=== PATIENT | male | born 1955 | race Caucasian/White ===

== ENCOUNTER 2020-07-11 01:26 | Outpatient (CLI) | payer MEDICARE, SELFPAY ==
[2020-07-11 20:39] LABS: SARS-CoV-2 RNA PCR Negative
== END 2020-07-11 01:27 | disposition home or self-care (01) ==
LOC: ANHCOVIDDT 01:27
PROVIDERS: PCP Internal Medicine; Visit Provider Internal Medicine Cardiovascular Disease
DX: Z01.812 Encounter for preprocedural laboratory examination (principal); Z20.828 Contact with and (suspected) exposure to other viral communicable diseases
CPT/HCPCS: 87635; C9803; U0003

== ENCOUNTER 2020-07-13 01:09 | Day surgery (SDC) | payer MEDICARE, SELFPAY ==
[2020-07-12 09:49] VITALS: BMI 26.6
[2020-07-13] VITALS (15 sets, daily range): BP systolic 100–145; BP diastolic 71–121; PULSE 63–128; RESP 10–21; TEMP 36.2–36.5; O2SAT 95–100; BMI 26.5
--- NOTE | 2020-07-13 | ECG_ITS ---
Measurements Intervals [place] Rate: 77 P: CT: 0 QRS: 7 QRSD: 110 T: 39 QT: 347 QTc: 393 Interpretive Statements ATRIAL FLUTTER WITH VARIABLE BLOCK INCOMPLETE RIGHT BUNDLE BRANCH BLOCK ABNORMAL ECG Electronically Signed On 07-13-2020 11:33:56 PATIENT ACCOUNT ANALYST by Oswald Brown D.O.
--- NOTE | 2020-07-13 08:30 | ECG_ITS ---
Measurements Intervals [place] Rate: 64 P: 187 [place]: 151 QRS: 29 QRSD: 104 T: 5 QT: 411 QTc: 427 Interpretive Statements ECTOPIC ATRIAL RHYTHM VENTRICULAR PREMATURE COMPLEX INCOMPLETE RIGHT BUNDLE BRANCH BLOCK BORDERLINE ST-T WAVE ABNORMALITY- ANTERIOR LEADS ABNORMAL ECG Electronically Signed On 07-13-2020 11:24:46 GEOPHYSICAL PROSPECTING SURVEYOR by Oswald Brown D.O.
[2020-07-13 09:18] LABS: Hematocrit 48.9 % (42.0-52.0); Hemoglobin 16.9 g/dL (14.0-18.0); Mean Corpuscular HGB Conc 34.6 g/dl (32-36); Mean Corpuscular Hemoglobin 31.4 pg (26-34); Mean Corpuscular Volume 90.9 fl (80-100); Mean Platelet Volume 8.6 fl (7.4-10.4); Platelet Count Result 236 k/mm3 (150-375); Red Blood Count 5.38 M/mm3 (4.6-6.20); Red Cell Distribution Width 12.8 % (11.5-14.5); White Blood Count 10.4 K/mm3 (4.5-10.0)
[2020-07-13 09:29] LABS: INR 3.1; Prothrombin Time 32.1 Seconds (11.1-14.7)
[2020-07-13 09:45] LABS: Anion Gap 8 mmol/L (8-16); Blood Urea Nitrogen 16 mg/dL (9-20); Calcium 9.5 mg/dL (8.4-10.2); Carbon Dioxide 30 mmol/L (22-30); Chloride 102 mmol/L (98-107); Estimated CRCL calculation 75 ml/min; Estimated Glomerular Filt Rate > 60; Glucose 102 mg/dL (75-110); Magnesium 2.1 mg/dL (1.6-2.3); Potassium 4.2 mmol/L (3.4-5.0); Sodium 140 mmol/L (137-145)
--- NOTE | 2020-07-13 10:16 | WPDMODSED ---
Moderate Sedation Note-Pt Data Patient Data Diagnosis: Atrial flutter with variable AV block Present Complaint: none Procedure to be performed/Plan: transesophageal echocardiographic guided elective electrical cardioversion Allergies Allergy/AdvReac Type Severity Reaction Status Date / Time NKDA Allergy Unknown Unknown Uncoded 07/12/20 09:47 Home Medications Medication Instructions Recorded Confirmed Type aspirin 81 mg PO DAILY 07/12/20 07/12/20 History metoprolol succinate 25 mg PO DAILY 07/12/20 07/12/20 History multivitamin [Daily Multivitamin] 1 tablet PO DAILY 07/12/20 07/12/20 History pantoprazole 40 mg PO QAM 07/12/20 07/12/20 History pravastatin 40 mg PO BID 07/12/20 07/12/20 History warfarin 5 mg PO DAILY 07/12/20 07/12/20 History Current Medications: Active Medications Sodium Chloride (Normal Saline Iv) 1,000 mls @ 30 mls/hr IV CONT .Q24H CINDY Sedation/Anesthesia: No previous sedation/anesthesia problems (including family history). [facility] Past Medical History Medical History Atrial flutter Mitral stenosis Pulmonary hypertension Surgical History Surgical History Status post mitral valve repair Family History Family History Other Hypertension Social History Social History Smoking status: Former smoker Alcohol intake: never Substance use: former Substance use type: does not use Living arrangements: with family Gender identity (if verbalized by the patient): Male Sexual Orientation (if Verbalized by the Patient): Straight or Heterosexual Spiritual care concerns: No Mod Sed Physical Exam Physical Exam Pre Procedural Exam: Normal: Appearance, Eyes, Ears, Nose, Neck ( supple, normal range of motion), Throat ( posterior hypopharynx clear, nonerythematous), Airway ( normal anatomy, no obstruction), Lungs ( clear to auscultation bilaterally), Heart Size, Heart Rate ( regularly irregular), Heart Rhythm, Neuro Exam, Abdomen, Liver, Kidneys, Extremities and Skin Hours since solid foods: 12 Hours since liquid intake: 12 Internal Medicine - PN: Obj Da Vital Signs Vital Signs: Vital Signs - 24 hr 07/13/20 09:08 Temperature 36.5 C Pulse Rate 128 H Respiratory Rate 11 L Blood Pressure 145/121 H Pulse Oximetry 100 Meds/Results Medications: Active Medications Generic Name Dose Route Start Last Admin Trade Name Carlq PRN Reason Stop Dose Admin Sodium Chloride 1,000 mls @ 30 mls/hr 07/13/20 06:00 Normal Saline Iv IV CONT .Q24H CINDY Labs CBC & Chem 7: 07/13/20 09:02 07/13/20 09:02 Labs: Laboratory Results - last 24 hr 07/13/20 07/13/20 07/13/20 09:02 09:02 09:12 WBC 10.4 H RBC 5.38 Hgb 16.9 Hct 48.9 MCV 90.9 MCH 31.4 MCHC 34.6 RDW 12.8 Plt Count 236 MPV 8.6 PT 32.1 H INR 3.1 Sodium 140 Potassium 4.2 Chloride 102 Carbon Dioxide 30 Anion Gap 8 BUN 16 Creatinine 0.90 Estim Creat Clear Calc 75 Estimated GFR > 60 Glucose 102 Calcium 9.5 Magnesium 2.1 ASA Classification/Sedation ASA Classification/Sedation ASA Class: III Emergent: No Risks: Risks, benefits and alternatives explained and patient/family accepted plan for sedation. Patient re-evaluated immediately prior to sedation.
--- NOTE | 2020-07-13 10:20 | WPDHPUPDATE1 ---
History and Physical Update Update Date/Time: 07/13/20 10:20 History and Physical has been reviewed, including an updated exam of the patient. There are NO changes in the patient's condition. Risks, benefits, and alternatives have been discussed and questions answered. Patient agrees to proceed with procedure.
--- NOTE | 2020-07-13 11:16 | WPDTECDV ---
RUTH with Cardioversion Date of procedure: 07/13/20 Procedure Type: Transesophageal echocardiogram guided elective electrical cardioversion Diagnosis: history of mitral valve repair, atrial flutter with variable AV block Indications: history of mitral valve repair, atrial flutter with variable AV block Description of Procedure: Brief history present illness: Patient is a pleasant 64-year-old male with a history of complex mitral valve repair with quadrangular resection of the posterior leaflet status post mitral valve annuloplasty ring 2010 And postoperative atrial fibrillation /flutter status post cardioversion who now presented in the office complaints of palpitations found to be in atrial flutter with variable AV block with a surface echocardiogram which revealed suggestion of [id number] mitral stenosis mean gradient of 11 mm Hg calculated valve a 2.5 centimeter squared referred for transesophageal echocardiogram-guided elective electrical cardioversion in attempt to restore sinus rhythm and assessment of mitral repair with stenosis. Procedure in detail: After verbal and written informed consent was obtained the patient risks, benefits, and alternatives explained in detail the patient agreed to proceed with the plan of care as outlined above. Patient was evaluated at bedside in the [facility] procedure room. On examination, neck was supple with normal range of motion, no restrictions to opening of the oral cavity, jaw angle and posterior hypopharynx was clear. Lungs were clear to auscultation. Patient was placed in appropriate 30 to 45 degree angle in a supine, slight left lateral decubitus position. Patient was monitored throughout the study with telemetry, oxygen saturation, end-tidal CO2 monitoring, blood pressure, heart rate, and respirations. Anterior and posterior defibrillator pads placed in the appropriate positions. The posterior hypopharynx was then locally anesthetized using repeated administration of Hurricaine spray as well as gargled viscous lidocaine. After local anesthetic of the posterior hypopharynx was achieved and the oral bite block placed, moderate sedation was administered. Through the oral bite block, the transesophageal echocardiogram probe was advanced into the posterior hypopharynx and into the esophagus easily and without complication. Multiple, multiplanar echocardiographic images were obtained in multiple standard re-projections. Pulsed wave, continuous-wave, and color-flow Doppler were utilized in conjunction with this study. At the conclusion of the study, the transesophageal echocardiogram probe was removed easily and without complication. Patient tolerated the procedure well without difficulty. Patient was in atrial fibrillation throughout the study. Sedation: Moderate Sedation/Anesthesia administration: Patient denied previous intolerance or complications with anesthesia/sedation. Please see sedation note for documentation of the pre-procedure physical examination. As noted above, after adequate local anesthesia of the posterior hypopharynx was achieved, a total of mg intravenous Versed and a total of mcg intravenous Fentanyl in multiple divided doses was utilized for moderate sedation. Sedation start time was and end time was for a total of minutes [id number] intra-procedure time. Sedation was administered by a qualified observer RN under my supervision with intra-procedure [id number] observation and management throughout the entirety of the procedure. There were no other issues or complications and patient tolerated the procedure well and sedation protocol well and I was present for the entirety. Findings: Findings: Left ventricle not well visualized in all views due to reverberation artifact from mitral annuloplasty ring, however, LV size appears within normal limits, LV systolic function lower limits normal 50-55%. Right ventricular size and systolic function within normal limits. Upper limits normal
== END 2020-07-13 12:28 | disposition home or self-care (01) ==
PROVIDERS: PCP Internal Medicine; Visit Provider Internal Medicine Cardiovascular Disease
PROC: 5A2204Z Restoration of Cardiac Rhythm, Single (ICD-10-PCS; principal; 2020-07-13 10:00)
PROC: (CPT 93312; 2020-07-13 10:00)
DX: I48.92 Unspecified atrial flutter (principal); I45.19 Other right bundle-branch block; I27.20 Pulmonary hypertension, unspecified; I34.2 Nonrheumatic mitral (valve) stenosis; Z79.01 Long term (current) use of anticoagulants; Z87.891 Personal history of nicotine dependence; Z79.51 Long term (current) use of inhaled steroids; Z79.899 Other long term (current) drug therapy
CPT/HCPCS: 36415; 80048; 83735; 85027; 85610; 92960; 93005; 93312; 93320; 93325; J2250; J3010; J7040

== ENCOUNTER 2022-09-07 10:26 | Outpatient (NON) | payer MEDICARE, SELFPAY ==
[2022-09-07 12:46] LABS: Appearance Synovial Fluid Cloudy (Clear); Color Synovial Fluid Red (Colorless); Source Synovial Fluid Synovial fluid
[2022-09-07 12:47] LABS: Lymphocytes Synovial Fluid 13 %; Monocytes Synovial Fluid 37 %; Neutrophils Synovial Fluid 50 % (0-25); Nucleated Cell Synovial Fluid 1782 /uL (0-200)
[2022-09-07 12:52] LABS: Crystals Synovial Fluid None Seen (None Seen)
== END 2022-09-07 10:27 | disposition home or self-care (01) ==
PROVIDERS: PCP Internal Medicine; Visit Provider Physician Assistant Surgical
DX: M25.462 Effusion, left knee (principal)
CPT/HCPCS: 89051; 89060

== ENCOUNTER 2023-10-01 10:14 | Outpatient (CLI) | payer MEDICARE, SELFPAY ==
--- NOTE | ~2023-10-01 | XR_ITS ---
Left Knee Technique: AP, lateral, and sunrise views were obtained. Clinical History: Pain Findings: No fracture or dislocation is seen. Osseous alignment is anatomic. Joint spaces are preserv ed without degenerative or erosive change. There is chondrocalcinosis of the menisci. Moderate joint effusion is seen. Impression: Moderate joint effusion. Chondrocalcinosis of the menisci. Reviewed, dictated and finalized at location . PRODUCTION ARTIST Impression: Moderate joint effusion. Chondrocalcinosis of the menisci.
[2023-10-01 12:31] LABS: Color Synovial Fluid Other (Colorless); Source Synovial Fluid Synovial fluid
[2023-10-01 12:32] LABS: Appearance Synovial Fluid Clear (Clear); Nucleated Cell Synovial Fluid 340 /uL (0-200); RBC Synovial Fluid 1545 /uL (0-0)
[2023-10-01 12:40] LABS: Crystals Synovial Fluid Rare Cppd (None Seen); Lymphocytes Synovial Fluid 32 %; Monocytes Synovial Fluid 9 %; Neutrophils Synovial Fluid 59 % (0-25)
== END 2023-10-01 10:15 | disposition home or self-care (01) ==
PROVIDERS: PCP Internal Medicine; Visit Provider Physician Assistant Surgical
DX: M17.12 Unilateral primary osteoarthritis, left knee (principal); M25.462 Effusion, left knee
CPT/HCPCS: 73562; 87070; 87205; 89051; 89060

== ENCOUNTER 2023-11-07 08:18 | Outpatient (CLI) | payer MEDICARE, SELFPAY ==
--- NOTE | ~2023-11-07 | MR_ITS ---
EXAMINATION: MR knee LT wo con DATE: 11/07/2023 09:16 INDICATION: Left knee pain TECHNIQUE: Magnetic resonance imaging (MRI) of the left knee was performed without intravenous contra st. Sequences included coronal PD-weighted FSE, coronal PD-weighted FS FSE, sagittal T2-weighted FSE , sagittal PD-weighted FS FSE and axial PD weighted fat saturated FSE. COMPARISON: Radiographs dated 10/01/2023 FINDINGS: Medial compartment: Medial extrusion of the small or meniscal body likely reflecting changes of prior partial meniscectom y. There is a complex tear with linear fluid signal extending to contact both the superior and inferi or articular surfaces at the junction of the body and posterior horn of the medial meniscus. There is additional increased signal of less than fluid intensity which extends a small distance into the imm ediately adjacent medial side of the posterior horn and through the remaining meniscal tissue at the body of the meniscus which is also suspicious for tear although could also result from the chondrocal cinosis which is evident on the prior radiographs. There is shallow chondral ulceration with mild par tial-thickness cartilage loss and chondral surface regularity along the medial tibial plateau as well as the anterior weightbearing medial femoral condyle, both with deeper fissuring laterally but witho ut degenerative subchondral changes. Lateral compartment: There is increased signal of less than fluid intensity wall of the inner two thirds of the anterior h orn and along the free edge and inferior articular surface of the body of the lateral meniscus suspic ious for complex tear although there is chondrocalcinosis along the lateral meniscus on the plain rad iographs which could also account for the increased signal in the absence of tear. A portion of incre ased signal at the anterior horn however appears relatively linear and well-defined extending to the inferior articular surface and is most suspicious for tear. As in the medial compartment there is dif fuse shallow chondral ulceration with chondral surface regularity along the lateral tibial plateau an d anterior to central weightbearing lateral femoral condyle. There is some deeper chondral fissuring at the central to posterior aspect of the lateral tibial plateau with a couple tiny foci of subarticu lar marrow-like signal change. This underlies a small focus of low signal intensity suggesting a tiny loose body situated between the lateral tibial plateau and the free edge of the posterior horn of th e lateral meniscus. There is a larger osteochondral body with central marrow fat signal intensity jayda ng the posterior inferior margin of the posterior horn. There is additional deep chondral fissuring w ith subarticular edema-like signal change along the posterior most articular surface of the lateral f emoral condyle. Patellofemoral compartment: Deep chondral fissuring with underlying mild subarticular edema-like signal change extending a band a cross the lateral patellar facet and juxtaposed cephalad aspect of the lateral trochlea. Ligaments and tendons: Anterior and posterior cruciate ligaments are normal. The medial collateral ligament and fibular mae ateral ligament complex are normal. Mild distal quadriceps tendinopathy with small heterotopic ossicl e at its anterior tibial insertion which suggests sequela of chronic Memo-Schlatter's disease. Quad riceps tendon is normal. The visualized medial and lateral hamstring tendons as well as the iliotibia l band are normal. Fluid: Small to moderate-sized knee joint effusion with mild synovitis at the suprapatellar pouch and in the posterior recess of the knee. Additional loose osteochondral bodies in the posterior recess of the n ative largest posterior to the posterior cruciate ligament. There is a multilobulated ganglion cyst e xtending along the posterior rim of the lateral tibial plateau deep to the distal
== END 2023-11-07 08:19 | disposition home or self-care (01) ==
PROVIDERS: PCP Internal Medicine; Visit Provider Physician Assistant Surgical
DX: S83.242D Other tear of medial meniscus, current injury, left knee, subsequent encounter (principal); X58.XXXD Exposure to other specified factors, subsequent encounter; M17.12 Unilateral primary osteoarthritis, left knee; M25.462 Effusion, left knee
CPT/HCPCS: 73721

== ENCOUNTER 2023-12-09 13:06 | Outpatient (CLI) | payer MEDICARE, SELFPAY ==
--- NOTE | 2023-12-09 13:24 | ECG_ITS ---
Measurements Intervals [place] Rate: 53 P: -73 [place]: 128 QRS: 12 QRSD: 116 T: 25 QT: 434 QTc: 418 Interpretive Statements ECTOPIC ATRIAL RHYTHM WITH OCCASIONAL SUPRAVENTRICULAR PREMATURE COMPLEXES RIGHT BUNDLE BRANCH BLOCK [90+ ms QRS DURATION, TERMINAL R IN V1/V2, 40+ ms S IN I/aVL/V4/V5/V6] ABNORMAL ECG SEE SCANNED COPY FOR SIGNATURE MTDD
[2023-12-09 13:40] LABS: INR 1.2; Partial Thromboplastin Time 37.6 Seconds (22.3-36.8); Prothrombin Time 15.6 Seconds (11.1-14.7)
== END 2023-12-09 13:07 | disposition home or self-care (01) ==
LOC: ANHSURGERY 13:09
PROVIDERS: Anesthesiology; PCP Internal Medicine; Visit Provider Orthopaedic Surgery
DX: E78.00 Pure hypercholesterolemia, unspecified (principal); Z79.01 Long term (current) use of anticoagulants; Z01.818 Encounter for other preprocedural examination; I45.10 Unspecified right bundle-branch block
CPT/HCPCS: 36415; 85610; 85730; 93005

== ENCOUNTER 2023-12-12 00:18 | Day surgery (SDC) | payer MEDICARE, SELFPAY ==
--- NOTE | 2023-12-09 08:37 | PC.NURSE ---
Report to the Outpatient Waiting Room, entrance under the green pavilion located off [facility], at time __1130 on date _12/12/23 . Planned Procedure Time: __1:30 PM . Time changes happen often and if your time is changed the preop area will call you the afternoon before. - You and your visitor will be asked to self-screen and do not enter if you have any COVID symptoms. - A mask is optional within the hospital at this time. Patients may have clear liquids (water, carbonated beverages, clear teas, apple juice) until 3 hours prior to surgery( 10:30 AM) with a maximum of 20 ounces. - No food from midnight until time of surgery - Infants may have breast milk until 4 hours before surgery, infant formula 6 hours prior to surgery. - Children will be allowed to drink immediately following surgery. If applicable, please bring a bottle or sippy cup to assist with drinking. Juice, water, soda, and popsicles are readily available. For infants on formula, please bring formula the day of surgery. Pacifiers are allowed. Take the following medications with a SIP of water the morning of surgery: ____METOPROLOL DO NOT STOP ANY OF YOUR OTHER PRESCRIPTION MEDICATIONS PRIOR TO SURGERY ?EXCEPT THE FOLLOWING Medications to discontinue per physician ___PT STATES LAST DOSE ASPIRIN AND WARFARIN 12/06/[address] REGALADO . LAST DOSE MULTIVITAMIN 12/09/23 Please no make-up, nail panamanian, hairspray, perfume, deodorant, or body powder the day of surgery. No jewelry (including any body piercings) or valuables the day of surgery, leave them at home. Please take a shower or bath the night before, or the morning of, surgery with an antibacterial soap. Wear comfortable, loose fitting clothing. Children are encouraged to wear pajamas. - Jewelry must be removed prior to entering the operating room. Rings and piercings that are not removed may be cut off. - The hospital will not accept responsibility for valuables. - Please leave all valuables, including medications, at home the day of surgery. If you are going home after surgery, a licensed [facility] driver must drive you home. - NO public transportation without another adult if you receive anesthesia. - We recommend that an adult stay with you for 24 hours following discharge. - We also recommend that you do not drive, make important decision, drink alcoholic beverages, or take any drugs that were not prescribed by your health care provider for at least 24 hours after your discharge time Follow any additional instructions given to you from your surgeon. If you or anyone in your household have experienced Covid symptoms in the past week, please notify your surgeon or the nurse liaison at the phone number below for possible testing. Telephone instructions given to _PATIENT and asked if any additional questions and then verbalized understanding. Patient advised to call surgeon office or pre surgery nurse liaison [phone] if any additional questions.
[2023-12-09 08:49] VITALS: BMI 23.4
[2023-12-12] VITALS (7 sets, daily range): BP systolic 102–150; BP diastolic 53–68; PULSE 46–50; RESP 13–16; TEMP 36.2–36.6; O2SAT 100
[2023-12-12] MEDS: LACTATED RINGERS 1,000 ML 30 ML IV CONT ×2 (12:00→14:36)
[2023-12-12] MEDS: ACETAMINOPHEN 500 MG TABLET 1000 MG PO (12:25)
[2023-12-12 12:35] LABS: Prothrombin Time 13.8 Seconds (11.1-14.7)
[2023-12-12 12:36] LABS: Partial Thromboplastin Time 34.6 Seconds (22.3-36.8)
[2023-12-12] MEDS: KETOROLAC 15 MG/ML VIAL (*BKC) IV PUSH (13:09)
--- NOTE | 2023-12-12 13:14 | WPDHPUPDATE1 ---
History and Physical Update Update Date/Time: 12/12/23 13:14 History and Physical has been reviewed, including an updated exam of the patient. There are NO changes in the patient's condition. Risks, benefits, and alternatives have been discussed and questions answered. Patient agrees to proceed with procedure.
--- NOTE | 2023-12-12 13:28 | WPDANESEPPF ---
Anes - Initial Pre Proc Eval Procedure: Operation Date: 12/12/23 13:30 Proposed Procedures p Left Knee Arthroscopic Partial Medial and Lateral Meniscectomy with Loose Body Removal - Renzo Gutiérrez MD Date/Time: 12/12/23 13:28 Surgeon: Renzo Gutiérrez MD Pre Op Diagnosis: Lt Knee Medial and Lateral Meniscus Tears Patient Data Age: 67 Gender: M Height: 1.8 m Weight: 78 kg Last Vital Signs Temp 97.1 F L 12/12/23 12:44 Pulse 49 L 12/12/23 12:44 Resp 16 12/12/23 12:44 BP 119/68 12/12/23 12:44 Pulse Ox 100 12/12/23 12:44 O2 Del Method Room Air 12/12/23 12:44 Allergies Allergy/AdvReac Type Severity Reaction Status Date / Time No Known Allergies Allergy Verified 12/12/23 11:53 Home Medications Medication Instructions Recorded Confirmed Type aspirin 81 mg tablet 81 mg PO DAILY 07/12/20 12/12/23 History multivitamin 1 tablet PO DAILY 07/12/20 12/12/23 History pravastatin 40 mg tablet 40 mg PO BID 07/12/20 12/12/23 History warfarin 5 mg tablet 5 mg PO DAILY 07/12/20 12/12/23 History metoprolol succinate 25 mg 50 mg PO DAILY #60 tabs 07/13/20 12/12/23 Rx tablet,extended release 24 hr pantoprazole 20 mg tablet,delayed 20 mg PO DAILY 12/09/23 12/12/23 History release hydrocodone 5 mg-acetaminophen 325 1 - 2 tablet PO Q4-6H PRN pain #15 12/12/23 Rx mg tablet tabs Laboratory Tests 12/12/23 12:19 PT 13.8 Seconds (11.1-14.7) INR 1.0 APTT 34.6 Seconds (22.3-36.8) Patient hx anesthesia problems: none Family hx anesthesia problems: none Results Review: All pre-operative results and documents have been reviewed as part of the pre-operative evaluation. [facility] Past Medical History Medical History A-fib Atrial flutter FH: mitral valve repair History of cardioversion (~07/13/20) Mitral stenosis Pulmonary hypertension Surgical History Surgical History H/O lateral meniscus repair of left knee (~1971) Hx of arthroscopic knee surgery (~1979) Lt knee Status post mitral valve repair Family History Family History Other Hypertension Social History Social History Smoking packs per day: 1 Smoking cigarettes per day: 20.0 Years smoked: 10 Smoking pack-years: 10.00 Smoking status: Former smoker Tobacco type: cigarettes Smoking end date: 09/02/79 Alcohol intake: never Substance use: former Substance use type: does not use Do You Feel Safe in your Home?: Yes Lack of Transportation: No Lack of Food: Never True Current Housing: I Have Housing Concerned About Future Housing: No Difficulty Paying Gas/Electric Bills: No Difficulty Paying for Meds: No Currently Unemployed: No Education: Associate Degree Difficulty w/ Childcare or Family Care: No Living arrangements: with family Gender identity (if verbalized by the patient): Male Sexual Orientation (if Verbalized by the Patient): Straight or Heterosexual Spiritual care concerns: No Anes - Eval Final PreProcedure Day of Procedure 12/12/23 13:28 Patient weight: normal Heart: regular rate and rhythm Lungs: clear to auscultation Airway: Mallampati scale Neurological: alert and oriented Last oral intake: >/= 8 hours ASA classification: III Emergent: no Anesthetic plan: proceed Anesthesia type and monitoring: general and standard monitoring Results Review: All pre-operative results and documents have been reviewed as part of the pre-operative evaluation. Pt w many questions about GA vs spinal. Lengthy discussion w pt and at bedside. They had questions about perioperative brain health. I did my best to explain the situation and background. After much discussion, we have made a shared decision to proceed w GA with short a
[2023-12-12] MEDS: ceFAZolin 2 GM/D5W 50 ML 2 GM/50 ML BAG IVPB (13:30)
[2023-12-12] MEDS: BUPIVACAINE/EPINEPHRINE 0.5% 50 ML VIAL 30 ML INFILTRATE (13:47)
--- NOTE | 2023-12-12 15:18 | W.PM.PROC2 ---
Procedure Note - Detailed Date of Procedure 12/12/23 Pre-op Diagnosis Lt Knee Medial and Lateral Meniscus Tears and multiple small loose bodies. Post-op Diagnosis Same Procedure Performed Arthroscopic partial medial and lateral meniscectomies, left knee. 2. Multiple loose body removal, 1 cm x 2 and several other smaller fragments. Surgeon Renzo Gutiérrez MD Anesthesia General Findings Significant pseudogout chondrocalcinosis in the menisci. Moderate diffuse synovitis. Complex tearing on the medial and lateral menisci. Some fraying of the ACL. Posterior knee had some thickening of the capsule and ligamentous tissue without loose body. The lateral loose body attached under the meniscus was identified and removed. It was approximately 1 cm in diameter. A 2nd loose body was found floating in the superior medial gutter. Several other small loose bodies were removed as well. Medial femur chondromalacia grade 2, medial tibia grade 2. Lateral femur chondromalacia grade 2, lateral tibia grade 2. Patellar grade 2, trochlea grade 1. Description of Procedure The patient was identified and the surgical site confirmed and signed in the preoperative holding area. Antibiotics were started per protocol, and the patient was brought to the operative room and transferred to the OR table. A general anesthetic was administered. Supine position with the operative lower extremity position in the leg crisostomo after placement of a well padded tourniquet. The leg support was lowered and the contralateral limb was supported with a soft bolster. The knee was prepped and draped in the usual sterile fashion. A time-out was performed. The portal sites were marked and infiltrated with 0.5% Marcaine 20 mL. The limb was exsanguinated and the tourniquet inflated to 300 mL Hg. Standard inferolateral and inferomedial portals were established. Inflow was obtained with the saline pump. The camera was introduced. Diagnostic inspection of the joint was accomplished. The menisci were debrided with the arthroscopic shaver and punches until stable. The radiofrequency probe was also used for further d?bridement. The loose bodies were similarly retrieved with a grasper through the anteromedial and anterolateral portal as necessary. The posterior joint was inspected by inserting the arthroscope just lateral to the ACL. There was thickening of the posterior tissue consistent with possible fragment of the PCL. There was a moderate synovitis diffusely. The arthroscopic instruments were removed. The tourniquet released and wounds closed with subcutaneous 4-0 Monocryl absorbable suture. Steri strips and a sterile dressing were applied. A light elastic wrap was placed. The patient was extubated and brought to the recovery room in stable condition. Estimated Blood Loss 5 Drains No Complications No immediate complications Condition Stable Disposition PACU [facility] Surgery - Charge Forward: Surgery Carlosing
[2023-12-12] MEDS: oxyCODONE HCL (*CRX) 5 MG TAB IR PO (15:25)
== END 2023-12-12 16:16 | disposition home or self-care (01) ==
PROVIDERS: Anesthesiology; PCP Internal Medicine; Visit Provider Orthopaedic Surgery
PROC: (CPT 29870; principal; 2023-12-12 13:30)
DX: M23.332 Other meniscus derangements, other medial meniscus, left knee (principal); M23.362 Other meniscus derangements, other lateral meniscus, left knee; M17.12 Unilateral primary osteoarthritis, left knee; M11.262 Other chondrocalcinosis, left knee; M23.42 Loose body in knee, left knee; M65.88 Other synovitis and tenosynovitis, other site; M94.262 Chondromalacia, left knee; I10 Essential (primary) hypertension; I48.91 Unspecified atrial fibrillation; I48.92 Unspecified atrial flutter; Z79.82 Long term (current) use of aspirin; Z79.01 Long term (current) use of anticoagulants; Z79.891 Long term (current) use of opiate analgesic; Z98.890 Other specified postprocedural states; Z87.891 Personal history of nicotine dependence; Z86.79 Personal history of other diseases of the circulatory system
CPT/HCPCS: 29880; 36415; 85610; 85730; A9270; J0690; J1100; J1885; J2405; J2704; J3010; J7120

== ENCOUNTER 2024-09-23 08:13 | Outpatient (CLI) | payer MEDICARE, SELFPAY ==
--- NOTE | ~2024-09-23 | XR_ITS ---
EXAMINATION: XR knee LT 3V DATE: 09/23/2024 08:36 INDICATION: Other specified post procedural states. TECHNIQUE: 3 views of left knee on 4 radiographs including standing views were obtained. COMPARISON: Left knee radiographs 05/18/2024 FINDINGS: Alignment is normal. No fracture. There is mild tricompartmental osteoarthritis. There is c hondrocalcinosis of the menisci and articular cartilage. There is a moderate-sized knee joint effusio n. IMPRESSION: 1. Mild left knee osteoarthritis. 2. Moderate-sized left knee joint effusion. Reviewed, dictated and finalized at location [] GER HRIS
--- OUTSIDE RECORDS SUMMARY | 2024-09-24 21:39 | XMS_ITS | Clinical Summary ---
Author Organization [facility] [employer] Address [address] [place] [address] Care Team Providers Care Carbon Setter Name Role Phone Unavailable Primary Care Provider Unavailabl e Source Comments [facility] [employer],non-owned Affiliates and Associated Physician Practices is amultiple site organization consisting of ambulatory clinics and hospital sitesin [place], [place], [place] and [place]. This disclosure is being madepursuant to the Care Everywhere program and may not contain all information available regarding this patient. Last updated 18.[facility] [employer] Allergies No known active allergies Medications * Be aware that medications may not be up to date on this document. Alwaysverify current medications with the patient. Medication Sig Dispensed Refills Start Date End Date Status Aspirin 81 MG 81 mg 09/06/2011 Active metoprolol succinate XL 24hr (TOPROL XL) 25 MG tablet Take 25 mg by mouth once daily 09/24/2018 Active multivitamin (OPURITY) CHEW tablet take 1 tablet by oral route every day with food 10/18/2011 Active omeprazole (PRILOSEC) 20 MG capsule Take 20 mg by mouth once daily 09/24/2017 09/26/2027 Active pravastatin (PRAVACHOL) 40 MG tablet Take 40 mg by mouth once daily 09/24/2018 Active Active Problems No known active problems Family History Medical History Relation Name Comments Other Father cardiac Relation Name Status Comments Father Mother Alive Social History Tobacco Use Types Packs/Day Years Used Date Smoking Tobacco: Former Smokeless Tobacco: Never Alcohol Use Standard Drinks/Week Comments No 0 (1 standard drink = 0.6 oz pur e alcohol) Sex and Gender Information Value Date Recorded Sex Assigned at Not on file Gender Identity Not on file Sexual Orientation Not on file Last Filed Vital Signs Vital Sign Reading Time Taken Comments Blood Pressure 120/70 11/27/2018 2:44 PM CDT Pulse 70 11/27/2018 2:44 PM CDT Temperature 36.9 ??C (98.4 ??F) 11/27/2018 2:44 PM CD T Respiratory Rate 16 11/27/2018 2:44 PM CDT Oxygen Saturation 97% 11/27/2018 2:44 PM CDT Inhaled Oxygen Concentration - - Weight 86.2 kg (190 lb) 11/27/2018 2:44 PM CDT Height 180.3 cm (5' 11 ) 11/27/2018 2:44 PM CDT Body Mass Index 26.5 11/27/2018 2:44 PM CDT Plan of Treatment Health Maintenance Due Date Last Done Comments COLOGUARD (AGES 45-75) - COL ON CA SCREENING 1953 COLON MONITORING 1953 COLONOSCOPY - COLON CA SCREENING 1953 CT COLONOGRAPHY - COLON CA SCREENING 1953 Colorectal Cancer Screening 1953 FIT - COLON CA SCREENING 1953 FLEX SIG - COLON CA SCREENING 1953 MEDICARE AWV ? 12 MONTHS 1953 HEPATITIS C SCREENING 12/23/1971 DTAP/TDAP/TD VACCINES (1 - Tdap) 1972 PNEUMOCOCCAL VACCINE 50+ (1 of 1 - PCV) 12/28/2003 ZOSTER VACCINE (1 of 2) 12/28/2003 SCREENING FOR DIABETES 11/27/2018 AAA SCREENING 2018 COVID-19 VACCINE ( - 2023-2 5 season) 2024 INFLUENZA VACCINE (#1) 2024 DEPRESSION SCREENING 09/02/2024 Respiratory Syncytial Virus (RSV) Vaccine Pt: or over 60 yrs (1 - 1-dose 75+ series) 2028 HEPATITIS B VACCINE Aged Out No longe r eligible based on patient's age to complete this topic HIB VACCINE Aged Out No longer eligi ble based on patient's age to complete this topic HPV VACCINE Aged Out No longer eligi ble based on patient's age to complete this topic MENINGOCOCCAL (Group B) VACCINE Aged Out No longer eligible based on patient's age to complete this topic MENINGOCOCCAL VACCINE Aged Out No alissa jyothi eligible based on patient's age to complete this topic
--- OUTSIDE RECORDS SUMMARY | 2024-09-24 21:39 | XMS_ITS | Referral Summary ---
Author Organization [facility] [employer] Address [address] [place] [address] Care Team Providers Care Philosophy Professor Name Role Phone Unavailable Primary Care Provider Unavailabl e Source Comments [facility] [employer],non-owned Affiliates and Associated Physician Practices is amultiple site organization consisting of ambulatory clinics and hospital sitesin [place], [place], [place] and [place]. This disclosure is being madepursuant to the Care Everywhere program and may not contain all information available regarding this patient. Last updated 18.[facility] [employer] Allergies No known active allergies Medications * [...] Active Active Problems No known active problems Social History Tobacco Use Types Packs/Day Years [...] 11/27/2018 2:44 PM CDT Plan of Treatment Not on file
--- OUTSIDE RECORDS SUMMARY | 2024-09-24 21:39 | XMS_ITS | Patient Health Summary ---
Author Organization [facility] Address [address] [place] [address] Care Team Providers Care Drill Sergeant Name Role Phone Unavailable Primary Care Provider Unavailabl e Note from [facility],non-owned Affiliates and Associated Physician Practices is amultiple site organization consisting of ambulatory clinics and hospital sitesin [place], [place], [place] and [place]. This disclosure is being madepursuant to the Care Everywhere program and may not contain all information available regarding this patient. Last updated 18.[facility] Allergies No known active allergies Medications * Be aware that medications may not be up to date on this document. Alwaysverify current medications with the patient. * Aspirin 81 MG(Started 09/06/2011) 81 mg * metoprolol succinate XL 24hr (TOPROL XL) 25 MG tablet(Started 09/24/2018) Take 25 mg by mouth once daily * multivitamin (OPURITY) CHEW tablet(Started 10/18/2011) take 1 tablet by oral route every day with food * omeprazole (PRILOSEC) 20 MG capsule(Started 09/24/2017) Take 20 mg by mouth once daily * pravastatin (PRAVACHOL) 40 MG tablet(Started 09/24/2018) Take 40 mg by mouth once daily Active Problems No known active problems Social [...] Mass Index 26.5 11/27/2018 2:44 PM CDT Procedures * INFLUENZA A+B - POINT OF CARE (AMB)(Performed 11/27/2018) Performed for Acute nasopharyngitis (common cold) Results * INFLUENZA A+B - POINT OF CARE (AMB) (11/27/2018) Influenza A Antigen Rapid Negative Negative Influenza B Antigen Rapid Negative Negative Influenza Internal Control present NEGATIVE - POSITIVE Influenza Lot Number [id number] Influenza Expiration Date 07/14/2020 Other NASOPHARYNGEAL SWAB / Unknown 11/27/2018 [facility] - POINT OF C ARE ORDERABLES
--- OUTSIDE RECORDS SUMMARY | 2024-09-24 21:40 | XMS_ITS | Encounter Summary ---
Author Organization [facility] Address [address] [place] [address] Phone Care Team Providers Care President Name Role Phone Guzman Voss MD Primary Care Provider [phone] Encounter Details Date Type Department Care Team (Late st Contact Info) Description 09/20/2024 Results Follow-Up [facility] [address] [place] [address] Guzman Voss MD [address] [address] Social History Tobacco Use Types Packs/Day Years Used Date Smoking Tobacco: Former Cigarettes Smokeless Tobacco: Former Alcohol Use Standard Drinks/Week Comments Never 0 (1 standard drink = 0.6 oz pur e alcohol) [facility] Utilities Answer Date Recorded In the past 12 months has citib[employer], gas, oil, or water [employer] threatened to shut off services in your home? No 09/15/2024 Social Connection and Isolat ion Panel [NHANES] Answer Date Recorded In a typical week, how many times do you talk on the phone with family, friends, or neighbors? More than three times a week 09/15/2024 How often do you get togethe r with friends or relatives? More than three times a week 09/15/2024 How often do you attend chur or yarsanism services? More than 4 times per year 09/15/2024 Do you belong to any clubs o r organizations such as adventist groups, unions, fraternal or athletic groups, or school groups? No 09/15/2024 How often do you attend meet ings of the clubs or organizations you belong to? Never 09/15/2024 Are you , , di vorced, , never , or living with a partner? 09/15/2024 AUDIT-C Answer Date Recorded Frequency of Alcohol Consumption Not on file 09/15/2024 Q2: How many drinks containi ng alcohol do you have on a typical day when you are drinking? Patient does not drink Q3: How often do you have si x or more drinks on one occasion? Never 09/15/2024 Overall Financial Resource Strain (CARDIA) Answe r Date Recorded How hard is it for you to pa y for the very basics like food, housing, medical care, and heating? Not hard at all 09/15/2024 PHQ-2 Answer Date Recorded Total Score - Questions 1-9 0 09/02 [facility] - Occupational Stress Questionnaire Answer Date Recorded Do you feel stress - tense, restless, nervous, or anxious, or unable to sleep at night because your mind is troubled all the time - these days? Not at all 09/15/2024 Exercise Vital Sign Answer Date Recorde d On average, how many days pe r week do you engage in moderate to strenuous exercise (like a brisk walk)? 6 days 09/15/2024 On average, how many minutes do you engage in exercise at this level? 40 min 09/15/2024 Hunger Vital Sign Answer Date Recorded Within the past 12 months, y ou worried that your food would run out before you got the money to buy more. Never true 09/15/19 25 Within the past 12 months, t he food you bought just didn't last and you didn't have money to get more. Never true 09/15/2024 PRAPARE - Transportation Answer Date Re corded In the past 12 months, has l ack of transportation kept you from medical appointments or from getting medications? No 09/02 In the past 12 months, has l ack of transportation kept you from meetings, work, or from getting things needed for daily living? No 09/15/2024 Housing Stability Vital Sign Answer Matteo e Recorded In the last 12 months, was t here a time when you were not able to pay the mortgage or rent on time? No 09/15/2024 In the past 12 months, how m any times have you moved where you were living? 0 09/15/2024 At any time in the past 12 m [facility], were you homeless or living in a fpc (including now)? No 09/15/2024 Sex and Gender Information Value Date Recorded Sex Assigned at Not on file Legal Sex Male 10:18 PM CDT Gender Identity Not on file Sexual Orientation Not on file documented as of this encounter Plan of Treatment Upcoming Encounters Date Type Department Care Team (Late st Contact Info) Description 11/03/2024 8:30 AM MEDICAL INSURANCE CODER Office Visit [facility] - General Surgery [facility] [address] [place] [address] Guzman Voss MD [address] [place] [address] Santana Ramirez MD [address] [place] [address] 01/14/2025 9:15 AM CDT Office Visit [facility] Family Medicine [facility] [address] [place] [address] Guzman Voss MD [address] [place] [address] documented as of this encounter Visit Diagnoses Not on filedocumented in this encounter Additional Health Concerns Assessment Noted Time PHQ-9 Depression Total Score: 0 09/16/19 25 2:29 PM MEDICAL INSURANCE CODER documented as of this encounter Care Teams President Relationship Specialty Start Date End Date Guzman Voss MD [address] [place] [address] PCP - General Family Medicine 09/16/24 documented as of this encounter
--- OUTSIDE RECORDS SUMMARY | 2024-09-24 21:40 | XMS_ITS | Continuity of Care Document ---
Author Organization [facility] Address [address] [place] [address] Phone Care Team Providers Care Grade Checker Name Role Phone Emir Estrada MD Unavailable Unavailable Allergies, Adverse Reactions, Alerts Substance Reaction Status Criticality No Known Drug Allergies Other Active No I nformation Medications Medication Instructions Dosage Effective Dates (start - stop) Status Comments PRAVASTATIN SODIUM 40 MG TAB TAKE 1 TABLET BY MOUTH EVERY DAY - Active PANTOPRAZOLE SOD DR 20 MG TAB TAKE 1 TABLET BY MOUTH EVERY DAY - Active METOPROLOL SUCC ER 50 MG TAB TAKE 1 TABLET BY MOUTH EVERY DAY - Active prednisone 20 mg tablet take 1 tablet by oral route 2 times every day for 5 days, then one daily x 5 days 20 MG - Active aspirin 81 mg tablet,delayed release take 1 tablet by oral route every day 81 MG - Active warfarin 5 mg tablet take 1 tablet by oral route every day 5 MG - Active PRAVASTATIN SODIUM 40 MG TAB TAKE 1 TABLET BY MOUTH EVERY DAY - No Longer Active Procedures Procedure Date FALL RISK ASSESSMENT DOC'D PRES/ABSN URINE INCON ASSESS Pt inelig neg scrn depres OFFICE [id number] SYST BP LT 130 MM HG DIAST BP < 80 MM HG FALL RISK ASSESSMENT DOC'D PRES/ABSN URINE INCON ASSESS Pt inelig neg scrn depres Flu Vac, quad (RIV4), Preservative And A ntibiotic Free IM PPPS, subseq visit SYST BP LT 130 MM HG DIAST BP < 80 MM HG Admin influenza virus vac FALL RISK ASSESSMENT DOC'D PRES/ABSN URINE INCON ASSESS PNEUMOVAX ADM MEDICARE PNEUMOVAX IMMUNIZATION PPPS, subseq visit SYST BP GE 130 - 139MM HG DIAST BP < 80 MM HG FALL RISK ASSESSMENT DOC'D PRES/ABSN URINE INCON ASSESS Pt inelig neg scrn depres EKG (ELECTROCARDIOGRAM) OFFICE [id number] SYST BP LT 130 MM HG DIAST BP < 80 MM HG FALL RISK ASSESSMENT DOC'D PRES/ABSN URINE INCON ASSESS CBC, INC PLATELETS AND DIFFERENTIAL COMPREHEN METABOLIC PANEL CMP 0 PSA, TOTAL, SCREENING MEDICARE ONLY THYROID STIMULATION HORMONE(TSH) 2019 URIC ACID, (S) ROUTINE VENIPUNCTURE PNEUMOVAX ADM MEDICARE PNEUMOCOCCAL CONJUGATE VACCINE, 13 LOIS T, IM Pt inelig neg scrn depres PPPS, initial visit SYST BP LT 130 MM HG DIAST BP < 80 MM HG Advance Directives Directive Yes / No Effective Date File Name No Information Encounters Encounter Description Practice Location Reason(s) For Visit Diagnoses Date Provider Providers Copied on Encounter [facility], [address], [place], [place], [id number] , [place] tel: [phone] [facility] No Information 5 Sean Field. [address] [facility], [address], [place], [place], [address], [place]. tel:[phone] [facility], [address], [place], [place], [address] , tel: [phone] [facility] No Information 4 Sean Field. [address] [place] [address], [address], [place], [place], [address], . tel:[phone] [facility], [address], [place], [place], [address] , tel: [phone] [facility] No Information 4 Sean Field. [address] [place] [address], [address], [place], [place], [address], . tel:[phone] [facility], [address], [place], [place], [address] , tel: [phone] [facility] No Information 4 Sean Field. [address] [place] [address], [address] , [place], [place], [address], . tel:[phone] [facility], [address], [place], [place], [address] , tel: [phone] [facility] No Information 4 Sean Field. [address] [place] [address], [address] , [place], [place], [address], . tel:[phone] OFFICE PENDD-HFG-VB PANDED [facility], [address], [place], [place], [address] , tel: [phone] [facility] low back pain (chief complaint) Body mass index [BMI] 24.0-24.9, adultAcute bilateral low back pain without sciatica 3 Greg Canada. [address] [place] [address], [address] , [place], [place], [address], . tel:[phone] Referring Provider: Emir Estrada, [address] [place] [address] [address], [place], [address] . tel:[phone] [facility], [address], [place], [place], [address] , tel: [phone] Administratio n Medicare preventive (chief complaint)C hronic Conditions (chief complaint)c hronic conditions (chief complaint) Medicare annual wellness visit, subsequentPrim jolie hypertensionHy perlipidemia, unspecified hyperlipidemia typeGastroesop hageal reflux disease, unspecified whether esophagitis presentAtrial fibrillation, unspecified typeS/P MVR (mitral valve repair)Onychom ycosisScreenin g for prostate cancerEncounte r for immunization Aug- 2 Sean Field. [address] [place] [address], [address] [place], [place], [address], . tel:[phone] Referring Provider: Emir Estrada [address] [place] [address], [place], [address] . tel:[phone] [facility], [address] [facility], [place], [place], [address] , tel: [phone] [place] Medicare preventive (chief complaint)C hronic Conditions (chief complaint) Medicare annual wellness visit, subsequentPrim jolie hypertensionGa stroesophageal reflux disease, unspecified whether esophagitis presentPolyart hritisEncounte r for immunization Jul- 1 Sean Field. [address] [place] [address], [address] [place], [place], [address], . tel:[phone] Referring Provider: Emir Estrada [address] [place] [address], [place], [address] . tel:[phone] OFFICE VKUTM-PFI-ZS PANDED [facility], [id number] [place] [address], [id number] , tel: [phone] [facility] left arm pain (chief complaint)C hronic Conditions (chief complaint) Body mass index (BMI) 26.0-26.9, adultParoxysma l atrial fibrillationLe ft arm pain Sep-2 1 Greg Canada. [address] [place] [address], [address] , [place], [place], [address], . tel:[phone] Referring Provider: Emir Estrada [address] [place] [address] [address] , [place], [address] . tel:[phone] [facility], [address], [place], [place], [address] , tel: [phone] [facility] Medicare preventive (chief complaint)C hronic Conditions (chief complaint) Medicare annual wellness visit, initialEssenti al hypertensionHy perlipidemia, unspecified hyperlipidemia typeParoxysmal atrial fibrillationPo lyarthritisLow er abdominal painScreening for prostate cancerScreenin g for colon cancerEncounte r for immunization 0 Sean Field. [address] [place] [address], [address], [place], [place], [address], . tel:[phone] Referring Provider: Emir Estrada, [address] [place] [address] [address], [place], [address] . tel:[phone] [facility], [address], [place], [place], [address] , tel: [phone] [facility] Cough 8 Sean Field. [address] [place] [address], [address] , [place], [place], [address], . tel:[phone] Referring Provider: Emir Estrada, [address] [place] [address] [address], [place], [address] . tel:[phone] [facility], [address], [place], [place], [address] , [place] tel: [phone] [facility] Encounter for preventive health examinationMix ed hyperlipidemia Essential hypertensionS/ P MVR (mitral valve repair)Immunit y status testingScreeni ng PSA (prostate specific antigen) 8 Greg Canada. [address] [place] [address], [address], [place], [place], [address], . tel:[phone] Referring Provider: Emir Estrada, [address] [place] [address] [address] , [place], [address] . tel:[phone] [facility], [address], [place], [place], [address] , tel: [phone] [facility] CoughHyperlipi demia, unspecified hyperlipidemia typeEssential hypertensionS/ P MVR (mitral valve repair) 0 7 Jasbir Denney. [address] [place] [address], [address], [place], [place], [address]. tel:[phone] Referring Provider: Emir Estrada, [address] [place] [address] [address], [place], [address] . tel:[phone] [facility], [address], [place], [place], [address] , tel: [phone] [facility] Otalgia of right earHyperlipide olive, unspecified hyperlipidemia typeEssential hypertensionS/ P MVR (mitral valve repair) 6 Greg Canada. [address], [address], [place], [place], [address], . tel:[phone] Referring Provider: Nancie Garza, [address] [place] [address] [address], [place], [address] . tel:[phone] [facility], [address], [place], [place], [address] , tel: [phone] [facility] Encounter for annual health examinationEss ential hypertensionHy perlipidemia, unspecifiedS/P MVR (mitral valve repair)TMJ (temporomandib ular joint disorder)Stres sScreening for prostate cancerScreenin g for colon cancer 6 Sean Field. [address] [place] [address], [address], [place], [place], [address], . tel:[phone] Referring Provider: Emir Estrada, [address] [place] [address] [address], [place], [address] . tel:[phone] [facility], [address], [place], [place], [address] , tel: [phone] [facility] CoughEssential hypertension 6 Greg Canada. [address], [address], [place], [place], [address], . tel:[phone] Referring Provider: Emir Estrada, [address] [place] [address] [address], [place], [address] . tel:[phone] [facility], [address], [place], [place], [address] , tel: [phone] [facility] Essential hypertensionHy perlipidemia, unspecified hyperlipidemia History of mitral valve repairScreenin g for prostate cancerAcute bronchitis, unspecified organism 5 Jasbir Denney. [address], [address], [place], [place], [address]. tel:[phone] Referring Provider: Emir Estrada, [address] [place] [address] [address], [place], [address] . [phone] [facility], [address], [place], [place], [address] , tel: [phone] [facility] PPD screening test 5 Sean Field. [address] [place] [address], [address], [place], [place], [address], . tel:[phone] Referring Provider: Emir Estrada, [address] [place] [address] [address], [place], [address] . tel:[phone] [facility], [address], [place], [place], [address] , tel: [phone] [facility] Unspecified essential hypertensionOt her and unspecified hyperlipidemia CoughScreening PSA (prostate specific antigen)Mitral valve disorders 4 Greg Canada. [address] [place] [address], [address], [place], [place], [address], . tel:[phone] Referring Provider: Emir Estrada, [address] [place] [address] [address], [place], [address] . tel:[phone] [facility], [address], [place], [place], [address] , tel: [phone] [facility] Dermatitis due to plantsCellulit is and abscess of faceUnspecifie d essential hypertension 3 Greg Canada. [address] [place] [address], [address], [place], [place], [address], . tel:[phone] Referring Provider: Emir Estrada, [address] [place] [address] [address], [place], [address] . tel:[phone] [facility], [address], [place], [place], [address] , tel: [phone] [facility] Other and unspecified hyperlipidemia Unspecified essential hypertensionOt her postsurgical status 2 Sean Field. [address] [place] [address], [address], [place], [place], [address], . tel:[phone] [facility], [address], [place], [place], [address] , tel: [phone] [facility] Acute upper respiratory infections of unspecifiedMit ral valve disorders 2 Sean Field. [address] [place] [address], [address], [place], [address], [place]. tel:[phone] Referring Provider: Emir Estrada, [address] [place] [address] [address], [place], [address] . tel:[phone] [facility], [address], [place], [place], [address] , tel: [phone] [facility] Mitral valve disorders 1 Sean Field. [address] [place] [address], [address], [place], [place], [address], [place]. tel:[phone] [facility], [address], [place], [address] , [place] tel: [phone] [facility] No Information 1 Sean Field. [address] [place] [address], [address], [place], [address], [place]. tel:[phone] [facility], [address], [place], [place], [address] , [place] tel: [phone] [facility] COUGH 1 [facility]. [facility], [place], [address], [place]. [facility], [address], [place], [place], [address] , [place] tel: [phone] [facility] MITRAL VALVE DISORDERSEBACE OUS CYSTSCRN MALIG NEOP-PROSTATEH YPERLIPIDEMIA NEC/NOSMALAISE AND FATIGUE NEC 1 Sean Field. [address] [place] [address], [address], [place], [place], [address], . tel:[phone] [facility], [address], [place], [place], [address] , tel: [phone] [facility] LONG-TERM USE MEDS NECACUTE BRONCHITIS 7 Sean Field. [address] [place] [address], [address], [place], [place], [address], . tel: [phone] [facility], [address], [place], [place], [address] , tel: [phone] [facility] ESOPHAGEAL REFLUX 6 Sean Field. [address] [place] [address], [address], [place], [place], [address], . tel: [phone] [facility], [address], [place], [place], [address] , tel: [phone] [facility] ACUTE URI NOS 6 [employer]. [address] [place] [address], [address], . [facility], [address], [place], [place], [address] , tel: [phone] Administratio n CARDIAC MURMURS NECCARDIOMEGAL Y 5 Sean Field. [address] [place] [address], [address], [place], [place], [address], . tel: [phone] [facility], [address], [place], [place], [address] , tel: [phone] [facility] MIXED HYPERLIPIDEMIA 5 Sean Field. [address] [place] [address], [address] , [place], [place], [address], . tel:[phone] Family History Family Member Type Diagnosis Age At Onset Father Problem (finding) diabetes melli tus in first degree relative Mother Problem (finding) osteoarthritis Mother Problem (finding) hypertension Father Problem (finding) coronary arterioscleros is Immunizations Vaccine Date Status Comments Flublok, quadrivalent, preservative free, 0.5mL dosage administered Source: New Immunization Record Pneumococcal polysaccharide PPV23 administered Source: New Immuniza tion Record [employer] ([employer]) COVID19 Vaccine, 0.3mL per dose, 2 doses, administered 21 days apart administered Source: Source Unspe cified [employer] ([employer]) COVID19 Vaccine, 0.3mL per dose, 2 doses, administered 21 days apart administered Source: Source Unspe cified Pneumococcal conjugate PCV 13 administere d Source: New Immunization Record Fluzone High-Dose, high dose , preservative free administered Source: Source Unspe cified Fluzone Quad , preservative free, split virus, 0.5mL dosage administered Source: Source Unspe cified DTP administered Source: New Imm unization Record Payers Payer name Insurance type Covered republican ID Authoriza tion(s) MEDICARE [id number] [employer] CI [id number] MEDICARE [id number] [employer] CI [id number] MEDICARE [id number] [employer] CI [id number] MEDICARE [id number] [employer] CI [id number] Social History Type Description Quantity Date Captured Comments Sex Male Smoking Status No Information Chief Complaint And Reason For Visit No Information Reason For Referral Reason For Referral No Information Plan Of Treatment Date Type Action Status Goal Dietary manageme nt education, guidance, and counseling completed Goal Tobacco cessation counseling completed Goal Tobacco cessation counseling Deleted Goal Tobacco cessation counseling completed Goal Dietary manageme nt education, guidance, and counseling completed Patient Education Acute Low Back Pain: Ex ercises completed History Of Present Illness Encounter Date Complaint History Of Prese nt Illness low back pain The symptoms beg an 4 months ago. The symptoms are reported as being mild. The symptoms occur randomly. The patient states the symptoms are acute. He states about 4 months ago he began having lower back pain. Initially thought he had 'done something, lifted something wrong and waited for symptoms to resolve on their own. 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 He states he is unsure if heat is helpful, does not worsen. He states he would like to know the cause of the pain. He has not used anything for pain- states he has high tolerance for pain. He denies radiation to legs or arms, no numbness or tingling. He states he has been doing some stretching exercises for past 4-6 weeks, he changed from sleeping on his side to sleeping on his back which seems to help. He notes he has been more aware of his posture and is using a lumbar support pillow which also seems helpful. He cannot take NSAIDs due to use of warfarin. He has used some heat as well. Medicare preventive The patient has not felt depressed and has had interest and pleasure doing things recently. Functional Status: (Functional status has not changed) on 08/02/2022. Cognitive Status: (Cognitive status has not changed) on 08/02/2022. The ''Up and Go'' test took less than 30 seconds andthe patient does not need help with activities of daily living. The patient is not at risk for falls. The patient has not fallen in the last year. The fall(s) did not result in injury. Patient's activity level is moderate. Patient exercises 2-3 times/week. The patient has smoke detectors in the home. Patient reports using a seatbelt in vehicles. Patient reports a healthy diet. Patient reports recent weight loss. Relevant history is negative for alcohol use. Patient is a former tobacco user. Chronic Conditions *See Chronic Conditions HPI chronic conditions *See Chronic Conditions [facility] Chronic Conditions *See Chronic Conditions HPI Medicare preventive The patient has not felt depressed and has had interest and pleasure doing things recently. Functional Status: (Functional status has not changed) on 07/31/2021. Cognitive Status: (Cognitive status has not changed) on 07/31/2021. The ''Up and Go'' test took less than 30 seconds and the patient does not need help with activities of daily living. The patient is not at risk for falls. The patient has not fallen in the last year. The fall(s) did not result in injury. Patient's activity level is moderate. Patient exercises 2-3 times/week. The patient has smoke detectors in the home. Patient reports using a seatbelt in vehicles. Patient reports a healthy diet. Relevant history is negative for passive smoke exposure and alcohol use. Chronic Conditions *See Chronic Conditions HPI left arm pain He notes he has had some tingling in his left arm especially around elbow for a couple of days. He notes he has been doing some moving and lifting items recently. He denies chest pains or feeling short of breath. 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 Chronic Conditions *See Chronic Conditions HPI Medicare preventive The patient has not felt depressed and has had interest and pleasure doing things recently. Functional Status: (Functional status has not changed) on 07/26/2020. Cognitive Status: (Cognitive status has not changed) on 07/26/2020. The ''Up and Go'' test took less than 30 seconds and the patient does not need help with activities of daily living. The patient is not at risk for falls. The patient has not fallen in the last year. The fall(s) did not result in injury. Patient's activity level is moderate. Patient exercises 2-3 times/week. Patient reports a healthy diet. Relevant history is negative for passive smoke exposure and alcohol use. Patient is a former tobacco user. Functional Status Date Functional Assessmen t No Information Instructions Date Instruction Additional Infor mation Prescribed activity/ exercise education Related to Body mass index (BMI) 24.0-24.9, adult Urinary Incontinence Dietary management e ducation, guidance, and counseling Related to Body mass index (BMI) 24.0-24.9, adult Fall Risk Prevention Check PSA today. Related to Scre ening for prostate cancer Flu shot. Related to Encou nter for immunization Try Lamisil. Related to Onych omycosis F/u with cardiology. Related to S/P MVR (mitral valve repair) Continue current med ications for now. Related to Gastroesophageal reflux disease, unspecified whether esophagitis present Continue current med ications for now. Related to Atrial fibrillation, unspecified type Continue current med ications for now. Related to Primary hypertension Continue current med ications for now. Related to Hyperlipidemia, unspecified hyperlipidemia type Get appropriate vacc dillan. Return 1 year Related to Medicare annual wellness visit, subsequent Disease process Does not want to vu e more meds for now, will contact me if any changes. Related to Polyarthritis Resume PPI. Related to Gastr oesophageal reflux disease, unspecified whether esophagitis present Get appropriate vaccines. Relate d to Medicare annual wellness visit, subsequent Continue current med ications for now. Related to Primary hypertension Disease process Counseled on dietary changes Counseled on weight reduction Fall Risk Prevention Urinary Incontinence Continue present plan of care. R elated to Paroxysmal atrial fibrillation He notes he has had some tingling in his left arm especially around elbow for a couple of days. He notes he has been doing some moving and lifting items recently. He denies chest pains or feeling short of breath. 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 Related to Left arm pain Prescribed activity/ exercise education Related to Body mass index (BMI) 26.0-26.9, adult Dietary management e ducation, guidance, and counseling Related to Body mass index (BMI) 26.0-26.9, adult Disease process Prevnar 13. Related to Encou nter for immunization Ideally needs a colonoscopy. Rel ated to Screening for colon cancer Check CBC, further to follow. Re lated to Lower abdominal pain Check PSA today. Related to Scre ening for prostate cancer Check uric acid, OK to see orthopedics. Related to Polyarthritis F/u with cardiology. Related to Paroxysmal atrial fibrillation Continue current med ications for now. Related to Hyperlipidemia, unspecified hyperlipidemia type Continue medications at current dose/regimen and check CMP. Related to Essential hypertension Get appropriate vaccines. Relate d to Medicare annual wellness visit, initial Disease process Counseled on weight reduction Urinary Incontinence Counseled on dietary changes Fall Risk Prevention Assessments Type Assessment Date No Information Patient Care Teams Name Effective Dates (start - stop) Status Members No Information
--- OUTSIDE RECORDS SUMMARY | 2024-09-24 21:40 | XMS_ITS | Referral Summary ---
Author Organization [address] [place] [address] [address] [place] [address] Care Team Providers Care Overnight Caregiver Name Role Phone Emir Estrada MD Primary Care Provider Encounters Date Type Department Care Team Description 09/08/2024 Anticoagulation Visit [facility] Cardiology [address] [place] [address] [address] [place] [phone] Anitra Bennett, OJDI 08/24/2024 Anticoagulation Visit [facility] Cardiology [address] [place] [address] [address] [place] [phone] Anitra Bennett, RN 08/11/2024 Anticoagulation Visit [facility] Cardiology [address] [place] [address] [address] [place] [phone] Anitra Bennett, RN 07/07/2024 Anticoagulation Visit [facility] Cardiology [address] [place] [address] [address] [place] [address] Anitra Bennett, RN from Last 3 Months Allergies No known active allergies Medications aspirin 81 mg tablet take 1 tablet (81MG) by oral route every day 0 09/06/2011 Active multivitamin tablet tablet take 1 tablet by oral route every day with food 0 10/18/[address] (PROTONIX) 20 mg EC tablet Take 1 tablet (20 mg total) by mouth daily 08/02/2022 Active pravastatin (PRAVACHOL) 40 mg tablet TAKE 1 TABLET BY MOUTH EVERY DAY 90 tablet 2 03/25/2023 Active metoprolol XL (TOPROL-XL) 50 mg extended release tablet TAKE 1 TABLET BY MOUTH EVERY DAY 90 tablet 1 05/08/2023 Active warfarin (COUMADIN) 5 mg tablet Take 1 tablet (5 mg total) by mouth daily 90 tablet 07/08/2024 Active Active Problems Problem Noted Date Diagnosed Date Witnessed episode of apnea 12/26/2021 Other fatigue 12/26/2021 Hypersomnolence 12/26/2021 COVID-19 08/17/2021 H/O mitral valve repair 08/29/2020 Chronic anticoagulation 08/29/2020 Pulmonary hypertension 07/01/2020 Atrial fibrillation (CMS/HCC) 07/01/2020 Lipid screening 07/01/2020 Gastroesophageal reflux disease without esophagi tis 09/26/2018 GRACE (dyspnea on exertion) 09/24/2017 Non-rheumatic mitral valve stenosis 09/24/2017 Chest pain 09/24/2017 Dyspnea on exertion 12/07/2016 Overview (01/25/2017): GRACE (dyspnea on exertion) Shortness of breath 06/14/2011 Cough Social History Tobacco Use Types Packs/Day Years Used Date Smoking Tobacco: Former Cigarettes 0 09/02/1969 - 09/24/1976 Smokeless Tobacco: Never Tobacco Cessation:Counseling Given: Not Answered Alcohol Use Standard Drinks/Week Comments No 0 (1 standard drink = 0.6 oz pur e alcohol) Sex and Gender Information Value Date Recorded Sex Assigned at Not on file Legal Sex Male 1:41 AM FORM LAYER Gender Identity Male 08/23/2020 10:04 AM FORM LAYER Sexual Orientation Straight 08/23/2020 10 :04 AM FORM LAYER Last Filed Vital Signs Vital Sign Reading Time Taken Comments Blood Pressure 102/60 04/13/2024 9:06 AM CDT Pulse 51 04/13/2024 9:06 AM CDT Temperature 37.4 ??C (99.3 ??F) 08/18/2021 3:45 PM CS T Respiratory Rate 18 08/18/2021 3:45 PM FORM LAYER Oxygen Saturation 96% 04/13/2024 9:06 AM CDT Inhaled Oxygen Concentration - - Weight 79.8 kg (176 lb) 04/13/2024 9:06 AM CDT Height 180.3 cm (5' 11 ) 04/13/2024 9:06 AM CDT Body Mass Index 24.55 04/13/2024 9:06 AM CDT Plan of Treatment Not on file Procedures Procedure Name Priority Date/Time Associated Diagnosis Comments PROTIME-INR Routine 09/04/2024 10:24 AM FORM LAYER Paroxysmal atrial fibrillation (CMS/HCC) (HCC) Chronic anticoagulation PROTIME-INR Routine 08/21/2024 8:25 AM FORM LAYER Paroxysmal atrial fibrillation (CMS/HCC) (HCC) Chronic anticoagulation PROTIME-INR Routine 08/10/2024 9:40 AM FORM LAYER Paroxysmal atrial fibrillation (CMS/HCC) (HCC) Chronic anticoagulation PROTIME-INR Routine 07/06/2024 7:32 AM FORM LAYER Paroxysmal atrial fibrillation (CMS/HCC) (HCC) Chronic anticoagulation from Last 3 Months Results * (ABNORMAL) Protime-INR (09/04/2024 10:24 AM FORM LAYER) INR 2.0(H) Cristopher [facility] Comment: Reference Range ? 0.9-1.1 Moderate-intensity Warfarin Therapy 2.0-3.0 Higher-intensity Warfarin Therapy ?? 3.0-4.0 PT 20.2(H) 9.0 - 11.5 sec [facility] Norman Comment: For additional information, please refer to http://education.GoNetYourself/faq/BBE264 (This link is being provided for informational/ educational purposes only.) Blood 09/04/2024 10:2 4 AM FORM LAYER 09/04/2024 10:24 AM FORM LAYER Narrative [facility] - 09/04/2024 10:46 PM FORM LAYER FASTING:YES FASTING: YES us Hernan Moya MD LAB BLOOD ORDERABLES Meaghan carcamo Result [facility] [address] [place] [address] * (ABNORMAL) Protime-INR (08/21/2024 8:25 AM FORM LAYER) INR 2.2(H) Cristopher [facility] Comment: Reference Range ? 0.9-1.1 Moderate-intensity Warfarin Therapy 2.0-3.0 Higher-intensity Warfarin Therapy ?? 3.0-4.0 PT 22.5(H) 9.0 - 11.5 sec Cristopher [facility] Comment: For additional information, please refer to http://Tykoon.GoNetYourself/faq/UBC474 (This link is being provided for informational/ educational purposes only.) Blood 08/21/2024 8:25 AM FORM LAYER 08/21/2024 8:25 AM FORM LAYER Hernan Moya MD LAB BLOOD ORDERABLES Meaghan l Result Performing Organization Address [facility] de Phone Number [facility] [id number] [place] [address] * (ABNORMAL) Protime-INR (08/10/2024 9:40 AM FORM LAYER) INR 3.6(H) Cristopher [facility] Comment: Reference Range ? 0.9-1.1 Moderate-intensity Warfarin Therapy 2.0-3.0 Higher-intensity Warfarin Therapy ?? 3.0-4.0 PT 35.6(H) 9.0 - 11.5 sec [facility] Comment: For additional information, please refer to http://Tykoon.GoNetYourself/faq/HTF679 (This link is being provided for informational/ educational purposes only.) Blood 08/10/2024 9:40 AM FORM LAYER 08/10/2024 9:40 AM FORM LAYER Hernan Moya MD LAB BLOOD ORDERABLES Meaghan l Result Performing Organization Address [facility] de Phone Number [facility] [address] [place] [address] * (ABNORMAL) Protime-INR (07/06/2024 7:32 AM FORM LAYER) INR 2.5(H) [facility] Norman Comment: Reference Range ? 0.9-1.1 Moderate-intensity Warfarin Therapy 2.0-3.0 Higher-intensity Warfarin Therapy ?? 3.0-4.0 PT 25.6(H) 9.0 - 11.5 sec [facility] Norman Comment: For additional information, please refer to http://education.GoNetYourself/faq/ZJD134 (This link is being provided for informational/ educational purposes only.) Blood 07/06/2024 7:32 AM FORM LAYER 07/06/2024 7:32 AM FORM LAYER Narrative [facility] - 07/06/2024 4:47 PM FORM LAYER FASTING:NO FASTING: NO us Hernan Moya MD LAB BLOOD ORDERABLES Meaghan l Result Performing Organization Address [facility] de Phone Number [facility] [address] [place] [address] from Last 3 Months Insurance COMMERCIAL GENERIC MEDICARE MEDICARE COMMERCIAL GENERIC MEDICARE COMMERCIAL GENERIC Care Teams Overnight Caregiver Relationship Specialty Start Date End Date Emir Estrada MD PCP - General 11/30/16
--- OUTSIDE RECORDS SUMMARY | 2024-09-24 21:40 | XMS_ITS | Clinical Summary ---
Author Organization [facility] Address [address] [place] [address] Phone Care Team Providers Care Mutual Fund Manager Name Role Phone Guzman Voss MD Primary Care Provider [phone] Allergies No known active allergies Medications aspirin EC 81 MG Tablet Delayed Response 81 mg. 09/06/2011 Active metoprolol Succinate (TOPROL-XL) 50 MG TABLET SR 24 HR Take 50 mg by mouth daily. Active pantoprazole (PROTONIX) 20 MG Tablet Delayed Response Take 20 mg by mouth daily. Active pravastatin (PRAVACHOL) 40 MG Tablet Take 1 Tablet by mouth daily. 09/24/2018 Active warfarin (COUMADIN) 5 MG Tablet Take 5 mg by mouth daily. 07/08/2024 Active Multiple Vitamin (MULTIVITAMIN PO) take 1 tablet by oral route every day with food 10/18/2011 Active Active Problems Problem Noted Date Diagnosed Date Hyperlipidemia 09/16/2024 Primary hypertension 09/16/2024 Gastroesophageal reflux disease 09/16/2024 Atrial fibrillation 09/16/2024 Chronic foot pain, right 09/16/2024 On warfarin therapy 09/16/2024 Chronic anticoagulation 09/16/2024 Encounters Date Type Department Care Team Description 09/20/2024 Results Follow-Up [facility] Medical [facility] - Family Medicine [facility] ([facility] [address] [place] [address] Guzman Voss MD 09/18/2024 8:15 AM KEEL PRESS OPERATOR - 09/18/2024 11:59 PM KEEL PRESS OPERATOR [facility] [address] [place] [address] Guzman Voss MD Discharge Disposition: Discharged to home or Selfcare 09/16/2024 2:30 PM KEEL PRESS OPERATOR [facility] [place] [address] Guzman Voss MD Atrial fibrillation, unspecified type (HCC) (Primary Dx); Gastroesophageal reflux disease, unspecified whether esophagitis present; Primary hypertension; Hyperlipidemia, unspecified hyperlipidemia type; Screening for colon cancer; Chronic foot pain, right; Screening for prostate cancer; Screening for diabetes mellitus; Vitamin D deficiency; Chronic anticoagulation; On warfarin therapy Discharge Disposition: Discharged to home or Selfcare 09/15/2024 Travel 09/09/2024 [facility] [place] [address] Guzman Voss MD from Last 3 Months Immunizations Immunization Administration Dates Next Due Covid-19, Mrna, Lnp-s, Pf, 3 0 Mcg/0.3 Ml Dose (Nanosys) 11/24/2020,11/01/2020 Hepatitis A And Hepatitis B Vaccine 10/07/2009,0 03/11/2009,02/11/2009 Influenza Vaccine, Quadrivalent, PF 06/17/2018,1 ,06/03/2017 Influenza, High-dose, Quadrivalent 06/03/2020, Influenza, Recombinant, Quadrivalent,injectable, Pf 08/02/2022 Influenza, Trivalent, Adjuvanted, PF 09/16/2024 Pneumococcal Vaccine - 13 Valent 07/26/2020 Pneumococcal Vaccine Adult - 23 Valent TDAP Vaccine 02/11/2009 Family History Medical History Relation Name Comments Diabetes Father Diabetes Maternal Grandfather Congestive Heart Failure Mother Hypertension Mother Renal Failure Mother Relation Name Status Comments Father Maternal Grandfather Mother Alive Social History Tobacco Use Types Packs/Day Years Used Date Smoking Tobacco: Former Cigarettes Smokeless Tobacco: Former Tobacco Cessation:Counseling Given: Yes Alcohol Use Standard Drinks/Week Comments Never 0 (1 standard drink = 0.6 oz pur e alcohol) [facility] Utilities Answer Date Recorded In the past 12 months has th e electric, gas, oil, or water company threatened to shut off services in your [...] 09/15/2024 How often do you attend chur ch or judaism services? More than 4 times per year 09/15/2024 Do you belong to any clubs o r organizations such as samaritan groups, unions, fraternal or athletic groups, or [...] Total Score - Questions 1-9 0 09/02 [facility] [place] [facility] [employer] [facility] - Occupational Stress [...] any time in the past 12 m [facility], were you homeless or living in a residential (including now)? No 09/15/2024 Sex and Gender Information Value Date Recorded Sex Assigned at Not on file Legal Sex Male 10:18 PM CDT Gender Identity Not on file Sexual Orientation Not on file Last Filed Vital Signs Vital Sign Reading Time Taken Comments Blood Pressure 100/60 09/16/2024 2:21 PM KEEL PRESS OPERATOR Pulse 62 09/16/2024 2:21 PM KEEL PRESS OPERATOR Temperature 36.2 ??C (97.1 ??F) 09/16/2024 2:21 PM CS T Respiratory Rate - - Oxygen Saturation 97% 09/16/2024 2:21 PM KEEL PRESS OPERATOR Inhaled Oxygen Concentration - - Weight 81.2 kg (179 lb) 09/16/2024 2:21 PM KEEL PRESS OPERATOR Height 180.3 cm (5' 11 ) 09/16/2024 2:21 PM KEEL PRESS OPERATOR Body Mass Index 24.97 09/16/2024 2:21 PM KEEL PRESS OPERATOR Plan of Treatment Upcoming Encounters Date Type Department Care Team (Late st Contact Info) Description 11/03/2024 8:30 AM KEEL PRESS OPERATOR [facility] Visit [facility] - [facility] - [place] [address] [address] Guzman Voss MD #2 [facility] [address] [place] [address] Santana Ramirez MD [address] [address] 01/14/2025 9:15 AM CDT Office Visit [facility] [place] [address] Guzman Voss MD #[address] [address] Health Maintenance Due Date Last Done Comments Hepatitis C Virus (HCV) Screening 1955 Colonoscopy 1998 Colorectal Cancer Screening 1998 Cologuard 12/28/2003 Immunochemical Fecal Occult Blood 12/28/2003 Zoster Immunization (1 of 2) 12/28/2003 AAA Screening Ultrasound 2018 Td Immunization Every 10 Years (Adults With 1 Tdap) 02/11/2019 02/11/2009 SARS-COV-2 Immunization ( season) 2024 11/24/2020, 11/01/2020 Respiratory Syncytial Virus (RSV) Immunization (Adult) (1 - 1-dose 75+ series) 2028 DTaP/Tdap/Td Immunization Discontinued 02/11/2009 TdaP Immunization Discontinued 02/11/2009 Hepatitis B Immunization Completed 010, 03/11/2009, 02/11/2009 Pneumococcal Immunization (50+ years) Completed 07/31/2021, 07/26/2020 Influenza Immunization Completed 5, 08/02/2022, 06/03/2020, Additional history exists PSA Discussion Discontinued 09/18/2024 Meningococcal Immunization (ACWY) Aged Out No longer eligible based on patient's age to complete this topic Rotavirus Immunization Aged Out No lo nger eligible based on patient's age to complete this topic Procedures Procedure Name Priority Date/Time Associated Diagnosis Comments XR CHEST 2 VIEWS Routine 09/18/2024 8:30 AM KEEL PRESS OPERATOR Primary hypertension CBC WITH AUTO DIFFERENTIAL Routine 09/18/2024 8:06 AM KEEL PRESS OPERATOR Primary hypertension HEMOGLOBIN A1C W/ ESTIMATED GLUCOSE Routine 09/18/2024 8:06 AM KEEL PRESS OPERATOR Screening for diabetes mellitus PSA SCREEN Routine 09/18/2024 8:06 AM KEEL PRESS OPERATOR Screening for prostate cancer VITAMIN D, 25 HYDROXY TOTAL Routine 09/18/2024 8:06 AM KEEL PRESS OPERATOR Vitamin D deficiency VITAMIN B12 Routine 09/18/2024 8:06 AM KEEL PRESS OPERATOR Primary hypertension URINALYSIS REFLEX IF INDICATED BY ABNORMAL RESULTS Routine 09/18/2024 8:06 AM KEEL PRESS OPERATOR Primary hypertension THYROID STIMULATING HORMONE (TSH) Routine 09/18/2024 8:06 AM KEEL PRESS OPERATOR Primary hypertension CMP (COMPREHENSIVE METABOLIC PANEL) Routine 09/18/2024 8:06 AM KEEL PRESS OPERATOR Hyperlipidemia, unspecified hyperlipidemia type COMPLETE BLOOD COUNT (CBC) WITH DIFF Routine 09/18/2024 8:06 AM KEEL PRESS OPERATOR Primary hypertension LIPID PANEL Routine 09/18/2024 8:06 AM KEEL PRESS OPERATOR Hyperlipidemia, unspecified hyperlipidemia type from Last 3 Months Results * XR CHEST 2 VIEWS (09/18/2024 8:30 AM KEEL PRESS OPERATOR) Anatomical Region Laterality Modality Chest N/A Digital Radiogra phy 09/20/2024 11:0 2 AM KEEL PRESS OPERATOR Impressions 09/20/2024 11:04 AM KEEL PRESS OPERATOR IMPRESSION: No acute findings. Narrative 09/20/2024 11:04 AM KEEL PRESS OPERATOR EXAM DESCRIPTION: XR CHEST 2 VIEWS REASON FOR STUDY: mild high BP, open heart 2010. no complaints ?? TECHNIQUE: 2 ??radiographic view(s) of the chest. COMPARISON: Chest radiograph 04/19/2011 FINDINGS: The cardiomediastinal silhouette appears normal. ??There is no airspace consolidation or pleural effusion. ??There are postoperative changes of median sternotomy and valvuloplasty. ??There are aortic calcifications. THIS IS AN ELECTRONICALLY VERIFIED FINAL REPORT 09/20/2024 11:02 AM - Electronically signed by ??Dalton Padilla M.D. JR: D: ??09/20/2024 11:02 AM T: ??09/20/2024 11:02 AM Report ID: [id number] Reading Location: ??[id number] Procedure Note Dalton Padilla MD - 09/20/2024 EXAM DESCRIPTION: XR CHEST 2 VIEWS REASON FOR STUDY: mild high BP, open heart 2010. no complaints TECHNIQUE: 2 radiographic view(s) of the chest. COMPARISON: Chest radiograph 04/19/2011 FINDINGS: The cardiomediastinal silhouette appears normal. There is no airspace consolidation or pleural effusion. There are postoperative changes of median sternotomy and valvuloplasty. There are aortic calcifications. THIS IS AN ELECTRONICALLY VERIFIED FINAL REPORT 09/20/2024 11:02 AM - Electronically signed by Dalton Padilla M.D. JR: Report ID: [id number] Reading Location: [id number] IMPRESSION: No acute findings. Guzman Voss MD [facility] [place] [facility] ORDERABLES F inal Result * VITAMIN D, 25 HYDROXY TOTAL (09/18/2024 8:06 AM KEEL PRESS OPERATOR) VITAMIN D, 25 HYDROX 40.8 ng/mL 09/18/2024 9:47 AM KEEL PRESS OPERATOR [facility] Blood Venipuncture / Unknown 09/18/2024 8:06 AM KEEL PRESS OPERATOR 09/18/2024 8:54 AM KEEL PRESS OPERATOR Narrative [facility] - 09/18/2024 9:47 AM KEEL PRESS OPERATOR Published reference ranges for Vitamin D vary depending on time and place and method of testing, and on patient's age, sex, ethnicity and levels of other measured analytes such as parathormone, calcium and phosphorus. ??The result should be evaluated in conjunction with clinical findings and suspicions. [place] [employer] and Endocrine Clinical Practice Guidelines: Status Vitamin D levels (ng/mL) Deficient <=20 At risk of inadequacy 21-29 Sufficient 30-100 Centers of Disease Control and Prevention Guidelines: Status Vitamin D levels (ng/mL) Deficient <13 At risk of inadequacy 13-19 Sufficient 20-50 Possibly harmful >50 References: [place] [employer], 2010 Dietary reference intakes for calcium and vitamin D. [place]: ??The National Academies Press. Balbina M, Husam N, Hanane RODGERS, et al., Evaluation, treatment, and prevention of Vitamin D deficiency: an Endocrinology Clinical Practice Guideline. JCEM 2011 96: 7 5593-5683. Li A, Benjie C, Anibal D, et al., Vitamin D Status: ??[place], 1005, [facility] data brief, no. 59, MD [place]: ??National Center for Health Statistics. 2010. Guzman Voss MD CHEMISTRY ORDERABLES Final Result [facility] [address] [place] [address] * HEMOGLOBIN A1C W/ ESTIMATED GLUCOSE (09/18/2024 8:06 AM KEEL PRESS OPERATOR) HGB-A1C 5.3 4.0 - 6.0 % 09/18/2024 9:10 AM KEEL PRESS OPERATOR [facility] Est Average Glucose 105.4 mg/dL 09/18/2024 9:10 AM KEEL PRESS OPERATOR [facility] Blood Venipuncture / Unknown 09/18/2024 8:06 AM KEEL PRESS OPERATOR 09/18/2024 8:55 AM KEEL PRESS OPERATOR Narrative [facility] - 09/18/2024 9:10 AM KEEL PRESS OPERATOR HEMOGLOBIN A1C: DIABETIC PATIENTS: WELL-CONTROLLED: ?? 6.2 - 7.0 INTERMEDIATE WELL-CONTROLLED: ??7.0 - 9.0 POORLY-CONTROLLED: ??>9.0 Specimens containing greater than 5% of Hemoglobin F may result in lower than expected % HbA1C results. Guzman Voss MD CHEMISTRY ORDERABLES Final Result [facility] [address] [place] [address] * (ABNORMAL) URINALYSIS REFLEX IF INDICATED BY ABNORMAL RESULTS (09/18/2024 8:06 AM KEEL PRESS OPERATOR) SPECIFIC GRAVITY 1.015 1.003 - 1.030 09/18/2024 9:49 AM KEEL PRESS OPERATOR [facility] URINE PH 5.0 5.0 - 9.0 09/18/2024 9:49 AM [facility] WBC ESTERASE Negative Negative 09/18/2024 9:49 AM [facility] NITRITE Negative Negative 09/18/2024 9:49 AM KEEL PRESS OPERATOR [facility] PROTEIN, RANDOM URINE 15 mg/dL(A) Negative 09/18/2024 9:49 AM KEEL PRESS OPERATOR [facility] URINE GLUCOSE, QUAL Negative Negative 09/18/2024 9:49 AM KEEL PRESS OPERATOR [facility] URINE KETONES Negative Negative 09/18/2024 9:49 AM [facility] UROBILINOGEN Normal Normal mg/dL 09/18/2024 9:49 AM [facility] URINE BLOOD 25 /uL(A) Negative nawaf/ul 09/18/2024 9:49 AM [facility] URINALYSIS COLOR Yellow 09/18/19 9:49 AM [facility] URINALYSIS CLARITY Clear 09/18/2024 9:49 AM [facility] WBC (Urine) 0-5 Negative, 0-5 /hpf 09/18/2024 9:49 AM [facility] URINE RBC'S 0-2 Negative, 0-2 /hpf 09/18/2024 9:49 AM [facility] EPITHELIAL CELLS Occasional /lpf 09/18/19 9:49 AM KEEL PRESS OPERATOR [facility] BACTERIA, URINE Few(A) Negative /hpf 09/18/2024 9:49 AM KEEL PRESS OPERATOR [facility] Urine URINE SPECIMEN COLLECTION, CLEAN CATCH / Unknown Non-Phlebotomy Collection / Unknown 09/18/2024 8:06 AM KEEL PRESS OPERATOR 09/18/2024 8:53 AM KEEL PRESS OPERATOR Guzman Voss MD URINE ORDERABLES Final Resu lt [facility] [address] [place] [address] * CBC WITH AUTO DIFFERENTIAL (09/18/2024 8:06 AM KEEL PRESS OPERATOR) WBC 6.57 4.00 - 12.00 10(3)/mcL 09/18/2024 8:58 AM KEEL PRESS OPERATOR [facility] RBC 4.88 4.40 - 5.80 10(6)/mcL 09/18/2024 8:58 AM KEEL PRESS OPERATOR [facility] HEMOGLOBIN (HGB) 15.4 13.0 - 16.5 g/dL 09/18/2024 8:58 AM KEEL PRESS OPERATOR [facility] HEMATOCRIT (HCT) 44.1 38.0 - 50.0 % 09/18/2024 8:58 AM KEEL PRESS OPERATOR [facility] MCV 90.4 82.0 - 96.0 fL 09/18/2024 8:58 AM KEEL PRESS OPERATOR [facility] MCH 31.6 26.0 - 32.0 pg 09/18/2024 8:58 AM KEEL PRESS OPERATOR [facility] MCHC 34.9 31.0 - 36.0 g/dL 09/18/2024 8:58 AM KEEL PRESS OPERATOR [facility] PLATELET COUNT 270 140 - 440 10(3)/mcL 09/18/2024 8:58 AM KEEL PRESS OPERATOR [facility] RDW 12.2 11.8 - 15.5 % 09/18/2024 8:58 AM KEEL PRESS OPERATOR [facility] MPV 8.9 8.0 - 12.6 fL 09/18/2024 8:58 AM KEEL PRESS OPERATOR [facility] NEUTROPHILS 56.2 40.0 - 68.0 % 09/18/2024 8:58 AM KEEL PRESS OPERATOR [facility] LYMPHOCYTES 31.7 19.0 - 49.0 % 09/18/2024 8:58 AM [facility] MONOCYTES 8.7 3.0 - 13.0 % 09/18/2024 8:58 AM KEEL PRESS OPERATOR [facility] EOSINOPHILS 2.9 0.0 - 8.0 % 09/18/2024 8:58 AM [facility] BASOPHILS 0.5 0.0 - 1.0 % 09/18/2024 8:58 AM [facility] ABSOLUTE NEUTROPHILS 3.70 1.40 - 5.30 10(3)/[facility] 09/18/2024 8:58 AM [facility] ABSOLUTE LYMPHOCYTES 2.08 0.90 - 3.30 10(3)/[facility] 09/18/2024 8:58 AM KEEL PRESS OPERATOR [facility] ABSOLUTE MONOCYTES 0.57 0.10 - 0.90 10(3)/[facility] 09/18/2024 8:58 AM KEEL PRESS OPERATOR [facility] ABSOLUTE EOSINOPHIL 0.19 0.00 - 0.50 10(3)/[facility] 09/18/2024 8:58 AM [facility] ABSOLUTE BASOPHILS 0.03 0.00 - 0.10 10(3)/[facility] 09/18/2024 8:58 AM [facility] NRBC PER 100 WBC 0 09/18/19 8:58 AM [facility] Blood Venipuncture / Unknown 09/18/2024 8:06 AM [facility] 09/18/2024 8:55 AM KEEL PRESS OPERATOR us Guzman Voss MD HEMATOLOGY ORDERABLES Final Result [facility] [address] [place] [address] * VITAMIN B12 (09/18/2024 8:06 AM KEEL PRESS OPERATOR) VITAMIN B12 645 213 - 816 pg/mL 09/18/2024 9:47 AM KEEL PRESS OPERATOR [facility] Blood Venipuncture / Unknown 09/18/2024 8:06 AM KEEL PRESS OPERATOR 09/18/2024 8:54 AM KEEL PRESS OPERATOR Guzman Voss MD CHEMISTRY ORDERABLES Final Result [facility] [address] [place] [address] * THYROID STIMULATING HORMONE (TSH) (09/18/2024 8:06 AM KEEL PRESS OPERATOR) TSH 1.569 0.300 - 5.000 mIU/L 09/18/2024 9:40 AM KEEL PRESS OPERATOR [facility] Blood Venipuncture / Unknown 09/18/2024 8:06 AM KEEL PRESS OPERATOR 09/18/2024 8:54 AM KEEL PRESS OPERATOR Guzman Voss MD CHEMISTRY ORDERABLES Final Result Performing Organization Address City/[facility]/ZIP Co de Phone Number [facility] [address] [place] [address] * (ABNORMAL) PSA SCREEN (09/18/2024 8:06 AM KEEL PRESS OPERATOR) PSA SCREEN, TOTAL 4.13(H) <4.00 ng/mL 09/18/2024 9:47 AM KEEL PRESS OPERATOR [facility] Blood Venipuncture / Unknown 09/18/2024 8:06 AM KEEL PRESS OPERATOR 09/18/2024 8:54 AM KEEL PRESS OPERATOR Narrative [facility] - 09/18/2024 9:47 AM KEEL PRESS OPERATOR The ALINITY Total PSA assay is a Chemiluminescent Microparticle Immunoassay (CMIA) for the quantitative determination of total PSA (both free PSA and PSA complexed to [id number]) in human serum. Total PSA values obtained with different assay methods, including Lorenzana PSA assays, cannot be used interchangeably. Guzman Voss MD CHEMISTRY ORDERABLES Final Result Performing Organization Address [place]/[facility]/ZIP Co de Phone Number [facility] [address] [place] [address] * (ABNORMAL) LIPID PANEL (09/18/2024 8:06 AM KEEL PRESS OPERATOR) CHOLESTEROL 189 <200 mg/dL 09/18/2024 9:25 AM KEEL PRESS OPERATOR [facility] TRIGLYCERIDES 78 <150 mg/dL 09/18/2024 9:25 AM KEEL PRESS OPERATOR [facility] HDL CHOLESTEROL 58 >40 mg/dL 9:25 AM [facility] LDL 115 <130 mg/dL 09/18/2024 9:25 AM [facility] VLDL 16 10 - 50 mg/dL 09/18/2024 9:25 AM [facility] CHOL/HDL RATIO 3.3 0.0 - 4.4 09/18/2024 9:25 AM [facility] NON-HDL CHOLESTEROL 131(H) <130 mg/dL 09/18/2024 9:25 AM [facility] IS THE PATIENT REQUIRED TO BE FASTING? Yes 09/18/2024 9:25 AM [facility] HAS THE PATIENT BEEN FASTING? Yes 09/18/2024 9:25 AM [facility] Blood Venipuncture / Unknown 09/18/2024 8:06 AM KEEL PRESS OPERATOR 09/18/2024 8:54 AM KEEL PRESS OPERATOR Guzman Voss MD CHEMISTRY ORDERABLES Final Result Performing Organization Address [place]/[facility]/ZIP Co de Phone Number [facility] [address] [place] [address] * CMP (COMPREHENSIVE METABOLIC PANEL) (09/18/2024 8:06 AM [facility]) SODIUM 137 136 - 145 mmol/L 09/18/2024 9:25 AM [facility] POTASSIUM 4.2 3.5 - 5.1 mmol/L 09/18/2024 9:25 AM [facility] CHLORIDE 102 98 - 107 mmol/L 09/18/2024 9:25 AM [facility] CO2, VENOUS 27 22 - 30 mmol/L 09/18/2024 9:25 AM [facility] ANION GAP 12.2 <18.0 mmol/L 09/18/2024 9:25 AM [facility] GLUCOSE 89 70 - 99 mg/dL 09/18/2024 9:25 AM [facility] BUN 16 8 - 26 mg/dL 09/18/2024 9:25 AM [facility] CREATININE, BLOOD 0.80 0.70 - 1.30 mg/dL 09/18/2024 9:25 AM [facility] BUN/CREATININE RATIO 20 12 - 20 ratio 09/18/2024 9:25 AM [facility] TOTAL PROTEIN 7.4 6.0 - 8.0 g/dL 09/18/2024 9:25 AM [facility] ALBUMIN 4.3 3.5 - 5.0 g/dL 09/18/2024 9:25 AM [facility] A/G RATIO 1.4 1.0 - 2.2 09/18/2024 9:25 AM [facility] CALCIUM 9.4 8.7 - 10.5 mg/dL 09/18/2024 9:25 AM [facility] T BILI 0.4 0.2 - 1.2 mg/dL 09/18/2024 9:25 AM [facility] SGOT (AST) 32 6 - 42 U/L 09/18/2024 9:25 AM [facility] SGPT (ALT) 30 6 - 55 U/L 09/18/2024 9:25 AM KEEL PRESS OPERATOR [facility] ALKALINE PHOSPHATASE 55 40 - 150 U/L 09/18/2024 9:25 AM KEEL PRESS OPERATOR [facility] IS THE PATIENT REQUIRED TO BE FASTING? No 09/18/2024 9:25 AM KEEL PRESS OPERATOR [facility] GFR, ESTIMATED >60 >=60 09/18/2024 9:25 AM KEEL PRESS OPERATOR [facility] Comment: Creatinine Clearance is the preferred criteria for selecting drug dose adjustments in renally impaired patients. ??The GFR is provided as additional pertinent clinical information. GFR is reported in mL/min/1.73 sq m. Calculation based on the Chronic Kidney Disease Epidemiology Collaboration (CKD- EPI) equation refit without adjustment for race. GFR, EST. >60 >=60 025 9:25 AM KEEL PRESS OPERATOR [facility] GFR, EST. NONAFRICAN >60 >=60 09/18/2024 9:25 AM KEEL PRESS OPERATOR [facility] Blood Venipuncture / Unknown 09/18/2024 8:06 AM KEEL PRESS OPERATOR 09/18/2024 8:54 AM KEEL PRESS OPERATOR Guzman Voss MD CHEMISTRY ORDERABLES Final Result Performing Organization Address City/State/[facility] Co de Phone Number [facility] [address] [place] [address] from Last 3 Months Insurance MEDICARE COMMERCIAL GENERIC Care Teams Mutual Fund Manager Relationship Specialty Start Date End Date Guzman Voss MD [address] [address] PCP - General Family Medicine 09/16/24
--- OUTSIDE RECORDS SUMMARY | 2024-09-24 21:40 | XMS_ITS | Clinical Summary ---
Author Organization [facility] [address] Address [address] [place] [address] Care Team Providers Care Sinker Puller Name Role Phone Emir Estrada MD Primary Care Provider [phone] Allergies No known active allergies Medications aspirin [...] on exertion) Shortness of breath 06/14/2011 Cough Encounters Date Type Department Care Team Description 09/08/2024 Anticoagulation Visit [facility] Cardiology [address] [place] [phone] Anitra Bennett RN 08/24/2024 Anticoagulation Visit [facility] Cardiology [address] [place] [address] [address] [place] [phone] Anitra Bennett RN 08/11/2024 Anticoagulation Visit [facility] Cardiology [address] [place] [address] [address] [place] [phone] Anitra Bennett RN 07/07/2024 Anticoagulation Visit [facility] Cardiology [facility] [address] [place] [phone] Anitra Bennett, RN from Last 3 Months Medical History Medical History Date Comments Hypertension Atrial fibrillation (CMS/HCC) (HCC) GERD (gastroesophageal reflux disease) 2013 Heart disease Mitro Valve repair 2010 Family History Medical History Relation Name Comments Diabetes Father Darryn Patterson Heart disease Father Darryn Patterson Other Father Darryn Patterson Unknown; Cause of : Unknown Hypertension Mother Ingrid Patterson Hypertension; Other Mother Ingrid Patterson Alive and well; Relation Name Status Comments Father Darryn Patterson (Age 74) Mother Ingrid Patterson Alive Social History Tobacco Use Types Packs/Day Years Used Date Smoking Tobacco: Former Cigarettes 0 09/02/1969 - 09/24/1976 Smokeless Tobacco: Never Tobacco Cessation:Counseling Given: Not Answered Alcohol Use Standard Drinks/Week Comments No 0 (1 standard drink = 0.6 oz pur e alcohol) Sex and Gender Information Value Date Recorded Sex Assigned at Not on file Legal Sex Male 1:41 AM HOSPITAL PERSONNEL DIRECTOR Gender Identity Male 08/23/2020 10:04 AM HOSPITAL PERSONNEL DIRECTOR Sexual Orientation Straight 08/23/2020 10 :04 AM HOSPITAL PERSONNEL DIRECTOR Obstetrics History Last Filed Vital Signs Vital Sign Reading Time Taken Comments Blood Pressure 102/60 04/13/2024 9:06 AM CDT Pulse 51 04/13/2024 9:06 AM CDT Temperature 37.4 ??C (99.3 ??F) 08/18/2021 3:45 PM CS T Respiratory Rate 18 08/18/2021 3:45 PM HOSPITAL PERSONNEL DIRECTOR Oxygen Saturation 96% 04/13/2024 9:06 AM CDT Inhaled Oxygen Concentration - - Weight 79.8 kg (176 lb) 04/13/2024 9:06 AM CDT Height 180.3 cm (5' 11 ) 04/13/2024 9:06 AM CDT Body Mass Index 24.55 04/13/2024 9:06 AM CDT Plan of Treatment Health Maintenance Due Date Last Done Comments Colon Cancer Screening-Colonoscopy 1955 Depression Screening 1955 Hepatitis C Screening 1955 Zoster Vaccine (1 of 2) 12/28/2003 Abdominal Aortic Aneurysm (A AA) Screen 2018 Pneumococcal vaccine 65+ (1 of 1 - PCV) 2018 Well Visit 65+ 2018 DTaP/Tdap/Td Vaccine (2 - Td or Tdap) 02/11/2019 02/11/2009 Fall Risk Assessment 08/18/2022 08/18/2021, 07/01/20 20 Influenza Vaccine (#1) 2024 0, 06/17/2018, 06/11/2017, Additional history exists Procedures Procedure Name Priority Date/Time Associated Diagnosis Comments PROTIME-INR Routine 09/04/2024 10:24 AM HOSPITAL PERSONNEL DIRECTOR Paroxysmal atrial fibrillation (CMS/HCC) (HCC) Chronic anticoagulation PROTIME-INR Routine 08/21/2024 8:25 AM HOSPITAL PERSONNEL DIRECTOR Paroxysmal atrial fibrillation (CMS/HCC) (HCC) Chronic anticoagulation PROTIME-INR Routine 08/10/2024 9:40 AM HOSPITAL PERSONNEL DIRECTOR Paroxysmal atrial fibrillation (CMS/HCC) (HCC) Chronic anticoagulation PROTIME-INR Routine 07/06/2024 7:32 AM HOSPITAL PERSONNEL DIRECTOR Paroxysmal atrial fibrillation (CMS/HCC) (HCC) Chronic anticoagulation from Last 3 Months Results * (ABNORMAL) Protime-INR (09/04/2024 10:24 AM HOSPITAL PERSONNEL DIRECTOR) INR 2.0(H) [facility] Comment: Reference Range ? 0.9-1.1 Moderate-intensity Warfarin Therapy 2.0-3.0 Higher-intensity Warfarin Therapy ?? 3.0-4.0 PT 20.2(H) 9.0 - 11.5 sec [facility] Comment: For additional information, please refer to http://[employer]/faq/JOE362 (This link is being provided for informational/ educational purposes only.) Blood 09/04/2024 10:2 4 AM HOSPITAL PERSONNEL DIRECTOR 09/04/2024 10:24 AM HOSPITAL PERSONNEL DIRECTOR Narrative [facility] - 09/04/2024 10:46 PM HOSPITAL PERSONNEL DIRECTOR FASTING:YES FASTING: YES Hernan Moya MD LAB BLOOD ORDERABLES Meaghan l Result Performing Organization Address [facility] de Phone Number [facility] [address] [place] [address] * (ABNORMAL) Protime-INR (08/21/2024 8:25 AM HOSPITAL PERSONNEL DIRECTOR) INR 2.2(H) [facility] Comment: Reference Range ? 0.9-1.1 Moderate-intensity Warfarin Therapy 2.0-3.0 Higher-intensity Warfarin Therapy ?? 3.0-4.0 PT 22.5(H) 9.0 - 11.5 sec [facility] Comment: For additional information, please refer to http://[employer]/faq/LXB909 (This link is being provided for informational/ educational purposes only.) Blood 08/21/2024 8:25 AM HOSPITAL PERSONNEL DIRECTOR 08/21/2024 8:25 AM HOSPITAL PERSONNEL DIRECTOR Hernan Moya MD LAB BLOOD ORDERABLES Meaghan l Result Performing Organization Address City/[facility]/ZIP Co de Phone Number [employer] [facility] [address] [place] [address] * (ABNORMAL) Protime-INR (08/10/2024 9:40 AM HOSPITAL PERSONNEL DIRECTOR) INR 3.6(H) [facility] Comment: Reference Range ? 0.9-1.1 Moderate-intensity Warfarin Therapy 2.0-3.0 Higher-intensity Warfarin Therapy ?? 3.0-4.0 PT 35.6(H) 9.0 - 11.5 sec [facility] Comment: For additional information, please refer to http://[employer]/faq/KRT847 (This link is being provided for informational/ educational purposes only.) Blood 08/10/2024 9:40 AM HOSPITAL PERSONNEL DIRECTOR 08/10/2024 9:40 AM HOSPITAL PERSONNEL DIRECTOR Hernan Moya MD LAB BLOOD ORDERABLES Meaghan l Result Performing Organization Address [facility] de Phone Number [employer] [address] [place] [address] * (ABNORMAL) Protime-INR (07/06/2024 7:32 AM HOSPITAL PERSONNEL DIRECTOR) INR 2.5(H) [facility] Comment: Reference Range ? 0.9-1.1 Moderate-intensity Warfarin Therapy 2.0-3.0 Higher-intensity Warfarin Therapy ?? 3.0-4.0 PT 25.6(H) 9.0 - 11.5 sec [facility] Comment: For additional information, please refer to http://[employer]/faq/MJV800 (This link is being provided for informational/ educational purposes only.) Blood 07/06/2024 7:32 AM HOSPITAL PERSONNEL DIRECTOR 07/06/2024 7:32 AM HOSPITAL PERSONNEL DIRECTOR Narrative [facility] - 07/06/2024 4:47 PM HOSPITAL PERSONNEL DIRECTOR FASTING:NO FASTING: NO us Hernan Moya MD LAB BLOOD ORDERABLES Meaghan dona Result [facility] [address] [place] [address] from Last 3 Months Insurance COMMERCIAL GENERIC MEDICARE MEDICARE COMMERCIAL GENERIC MEDICARE COMMERCIAL GENERIC Care Teams Sinker Puller Relationship Specialty Start Date End Date Emir Estrada MD PCP - General 11/30/16
== END 2024-09-23 08:14 | disposition home or self-care (01) ==
PROVIDERS: Visit Provider Orthopaedic Surgery
DX: Z98.890 Other specified postprocedural states (principal); M17.12 Unilateral primary osteoarthritis, left knee; M25.462 Effusion, left knee
CPT/HCPCS: 73562